=== PATIENT | female | born 1990 | race African-American/Black ===

== ENCOUNTER 2016-08-16 11:08 | Inpatient (IN) | payer OTHER ==
[~2016-08-16] VITALS: Ht 172.7 cm; Wt 80.6 kg
[~2016-08-16 11:08] MED LIST: CETI10TA84 PO; PRED20TA2 PO
--- NOTE | 2016-08-16 11:55 | EMERGENCY ROOM VISIT NOTE ---
History Report prepared by Johanny: Babs Escobar Under the Supervision of: Dr. Franky Brown D.O. First contact with patient: 11:38 Chief Complaint: MENTAL HEALTH EVALUATION Stated Complaint: ANXIETY/DEPRESSION History of Present Illness The patient is a 25 year old female who presents to the Emergency Room with complaints of persistent, worsening depression that began a few years ago. The patient states that she has been experiencing depression and anxiety over the past several years. She denies ever being admitted in the hospital for her depression and denies following with a therapist. The patient states that her friend encouraged her to talk with RJ on Monday. She states that she had another appointment this morning with RJ and was instructed to come to the emergency department for further evaluation. The patient states that she had a panic attack yesterday, and [facility] feels that the patient needs a safe space and possibly being started on medications for her depression. The patient states that she is feeling overwhelmed, and wants to continue on, but cannot perform on the level that she wants to. She states that she has had suicidal ideation, but no attempt. The patient states that she has been stressed out and had feelings of if she was not here things would be better. She denies any recent stressors, but states that school is getting harder, things are building up, and has been feeling stressed out. The patient denies any previous surgeries. She states that she in on control, Zyrtec, and Singular. The patient states that she drinks socially, but denies any tobacco use. Source of History: patient Onset: a few years ago Position: other (global) Quality: other (depression) Timing: worsening Note: Associated Symptoms: suicidal ideation without a plan, panic attacks Review of Systems See HPI for pertinent positives & negatives. A total of 10 systems reviewed and were otherwise negative. Past Medical & Surgical Medical Problems: (1) Depression (2) No significant past medical history Surgical Problems: (1) No significant past surgical history Family History Hypertension Social History Smoking Status: Never Smoker Drug Use: none Marital Status: single Housing Status: lives with roommate Occupation Status: [employer] student Current/Historical Medications Scheduled Control Pills ( Control Pills), 1 TAB PO DAILY Montelukast Sodium (Singulair), 10 MG PO DAILY Scheduled PRN Cetirizine (Zyrtec), 10 MG PO DAILY PRN for ALLERGIC REACTION Allergies Coded Allergies: No Known Allergies (Unverified , 08/16/16) Physical Exam Vital Signs Date Time Temp Pulse Resp B/P Pulse Ox O2 Delivery O2 Flow Rate FiO2 08/16/16 17:12 78 20 147/104 97 Room Air 08/16/16 13:40 75 18 141/96 99 Room Air 08/16/16 11:11 37.0 79 20 141/93 98 Room Air Physical Exam GENERAL: Patient is awake, alert, and in no acute distress. Patient is resting comfortably and showing no signs of anxiety EYES: The conjunctivae are clear. The pupils are round and reactive. EARS, NOSE, MOUTH AND THROAT: The nose is without any evidence of any deformity. Mucous membranes are moist tongue is midline NECK: The neck is nontender and supple. RESPIRATORY: Normal respiratory effort is noted there is no evidence of wheezing rhonchi or rales CARDIOVASCULAR: Regular rate and rhythm noted there no murmurs rubs or gallops normal S1 normal S2 GASTROINTESTINAL: The abdomen is soft. Bowel sounds are present in all quadrants. Abdomen is nontender MUSCULOSKELETAL/EXTREMITIES: There is no evidence of gross deformity full range of motion is noted in the hips and shoulders SKIN: There is no obvious evidence of any rash. There are no petechiae, pallor or cyanosis noted. NEUROLOGIC: Patient is awake alert and oriented x3 strength is symmetric patellar reflexes are 2+ bilaterally PSYCH: Affect was flat, patient was not anxious appearing, currently admitting to passive suicidal ideation with no plan. Medical Decision & Procedures Laboratory Results 08/16/16 10:20 Red Blood Count 4.88, Mean Corpuscular Volume 82.6, Mean Corpuscular Hemoglobin 28.1, Mean Corpuscular Hemoglobin Concent 34.0, Mean Platelet Volume 10.4, Neutrophils (%) (Auto) 44.6, Lymphocytes (%) (Auto) 47.0, Monocytes (%) (Auto) 8.1, Eosinophils (%) (Auto) 0.0, Basophils (%) (Auto) 0.0, Neutrophils # (Auto) 1.66, Lymphocytes # (Auto) 1.75, Monocytes # (Auto) 0.30, Eosinophils # (Auto) 0.00, Basophils # (Auto) 0.00 08/16/16 10:20 Test 08/16/16 10:20 2/14/17 11:24 08/16/16 12:40 White Blood Count 3.72 K/uL (4.8-10.8) Red Blood Count 4.88 M/uL (4.2-5.4) Hemoglobin 13.7 g/dL (12.0-16.0) Hematocrit 40.3 % (37-47) Mean Corpuscular Volume 82.6 fL (80-100) Mean Corpuscular Hemoglobin 28.1 pg (25-34) Mean Corpuscular Hemoglobin Concent 34.0 g/dl (32-36) Platelet Count 248 K/uL (130-400) Mean Platelet Volume 10.4 fL (7.4-10.4) Neutrophils (%) (Auto) 44.6 % Lymphocytes (%) (Auto) 47.0 % Monocytes (%) (Auto) 8.1 % Eosinophils (%) (Auto) 0.0 % Basophils (%) (Auto) 0.0 % Neutrophils # (Auto) 1.66 K/uL (1.4-6.5) Lymphocytes # (Auto) 1.75 K/uL (1.2-3.4) Monocytes # (Auto) 0.30 K/uL (0.11-0.59) Eosinophils # (Auto) 0.00 K/uL (0-0.5) Basophils # (Auto) 0.00 K/uL (0-0.2) RDW Standard Deviation 40.2 fL (36.4-46.3) RDW Coefficient of Variation 13.4 % (11.5-14.5) Immature Granulocyte % (Auto) 0.3 % Immature Granulocyte # (Auto) 0.01 K/uL (0.00-0.02) Anion Gap 8.0 mmol/L (3-11) Est Creatinine Clear Calc Drug Dose 106.1 ml/min Estimated GFR () 101.7 Estimated GFR (Non- 87.8 BUN/Creatinine Ratio 7.7 (10-20) Calcium Level 8.6 mg/dl (8.5-10.1) Total Bilirubin 0.7 mg/dl (0.2-1) Direct Bilirubin 0.1 mg/dl (0-0.2) Aspartate Amino Transf (AST/SGOT) 21 U/L (15-37) Alanine Aminotransferase (ALT/SGPT) 24 U/L (12-78) Alkaline Phosphatase 60 U/L (45-117) Total Protein 8.0 gm/dl (6.4-8.2) Albumin 4.0 gm/dl (3.4-5.0) Globulin 4.0 gm/dl (2.5-4.0) Albumin/Globulin Ratio 1.0 (0.9-2) Thyroid Stimulating Hormone (TSH) 1.380 uIu/ml (0.300-4.500) Ethyl Alcohol mg/dL < 3.0 mg/dl (0-3) Urine Color YELLOW Urine Appearance CLEAR (CLEAR) Urine pH 7.0 (4.5-7.5) Urine Specific [place] 1.016 (1.000-1.030) Urine Protein NEG (NEG) Urine Glucose (UA) NEG (NEG) Urine Ketones NEG (NEG) Urine Occult Blood NEG (NEG) Urine Nitrite NEG (NEG) Urine Bilirubin NEG (NEG) Urine Urobilinogen NEG (NEG) Urine Leukocyte Esterase TRACE (NEG) Urine WBC (Auto) 1-5 /hpf (0-5) Urine RBC (Auto) 0-4 /hpf (0-4) Urine Hyaline Casts (Auto) 1-5 /lpf (0-5) Urine Epithelial Cells (Auto) >30 /lpf (0-5) Urine Bacteria (Auto) 1+ (NEG) Urine Opiates Screen NEG (NEG) Urine Methadone, Qualitative NEG (NEG) Urine Barbiturates NEG (NEG) Urine Phencyclidine (PCP) Level NEG (NEG) Ur Amphetamine/Methamphetamine NEG (NEG) MDMA (Ecstasy) Screen NEG (NEG) Urine Benzodiazepines Screen NEG (NEG) Urine Cocaine Metabolite NEG (NEG) Urine Marijuana (THC) NEG (NEG) Human Chorionic Gonadotropin, Qual NEG (NEG) Laboratory results per my review. ED Course 1140: The patient was evaluated in room A8. A complete history and physical examination were performed. 1639: The patient has been accepted at [facility] for further evaluation and treatment. Medical Decision Differential diagnosis: Etiologies such as mood disorder, infection, hypoglycemia, electrolyte abnormalities, cardiac sources, intracerebral event, toxicologic, neurologic, as well as others were entertained. Nursing notes reviewed. The patient is a 25-year-old female who presented to the emergency department for an evaluation of mental health problem's. The patient has significant depression and anxiety symptoms. She is currently under significant stress because of her classes. She was medically cleared in the emergency department and evaluated by the emergency department mental health delegate. She was sent to the emergency apartment by her primary therapist. She was felt to be a good candidate for inpatient management. She was evaluated by the delegate from [address] [place] [address] and was accepted for inpatient management. Impression Primary Impression: Anxiety Additional Impression: Depression Scribe Attestation The scribe's documentation has been prepared under my direction and personally reviewed by me in its entirety. I confirm that the note above accurately reflects all work, treatment, procedures, and medical decision making performed by me. Departure Information Dispostion Mental Health Acute Care Referrals No Doctor, Assigned (PCP) Problem Qualifiers
[2016-08-16 12:10] LABS: URINE APPEARANCE CLEAR (CLEAR); URINE BILIRUBIN NEG (NEG); URINE COLOR YELLOW; URINE EPITHELIAL CELL AUTO >30 /lpf (0-5); URINE NITRITE NEG (NEG); URINE SPECIFIC GRAVITY 1.016 (1.000-1.030); UROBILINOGEN NEG (NEG)
[2016-08-16 12:11] LABS: MANUAL MICROSCOPIC REQUIRED? NO; REVIEW REQ? NO
[2016-08-16 12:15] LABS: COMPLETE YES; HEMATOCRIT 40.3 % (37-47); IG% 0.3 %; LYMPH ABS # 1.75 K/uL (1.2-3.4); MEAN CELL VOLUME 82.6 fL (80-100); MEAN CORPUSCULAR HEMOGLOBIN 28.1 pg (25-34); MEAN PLATELET VOLUME 10.4 fL (7.4-10.4); MONO % 8.1 %; NEUT % 44.6 %; PLATELET COUNT 248 K/uL (130-400); RED BLOOD COUNT 4.88 M/uL (4.2-5.4); WHITE BLOOD COUNT 3.72 K/uL (4.8-10.8)
[2016-08-16] MEDS ORDERED: BCPILLS PO (12:22)
[2016-08-16] MEDS ORDERED: MONT1TAB3 PO (12:22)
[2016-08-16 12:38] LABS: BUN/CREATININE RATIO 7.7 (10-20); CALCIUM 8.6 mg/dl (8.5-10.1); CREATININE 0.92 mg/dl (0.60-1.20); POTASSIUM 3.9 mmol/L (3.5-5.1)
[2016-08-16 12:42] LABS: BENZODIAZEPINE, URINE NEG (NEG); COCAINE,URINE NEG (NEG); PHENCYCLIDINE, URINE NEG (NEG)
[2016-08-16 12:49] LABS: THYROID STIMULATING HORMONE 1.38 uIu/ml (0.300-4.500)
[2016-08-16 12:59] LABS: PREG INTERNAL NEGATIVE QC NEG CLEAR BACKGROUND; PREG INTERNAL POSITIVE QC POS CONTROL LINE
[2016-08-16 17:12] VITALS: O2SAT 97
[2016-08-16 18:41] VITALS: BP 145/102; PULSE 70; TEMP 36.8; Ht 172.7 cm; Wt 80.6 kg
[2016-08-16] MEDS ORDERED: SODIUM CHLORIDE 0.65% NA SOLN 45 ML (OCEAN) PRN (19:30)
[2016-08-16] MEDS ORDERED: ACETAMINOPHEN 325 MG TAB PO PRN (19:30)
[2016-08-16] MEDS ORDERED: ALUMINUM/MAGNESIUM SUSP 30 ML UDC PO PRN (19:30)
[2016-08-16] MEDS ORDERED: MAGNESIUM HYDROXIDE SUSP 30 ML UDC PO PRN (19:30)
[2016-08-16] MEDS ORDERED: hydrOXYzine HCL 25 MG TAB PO PRN ×2 (19:30)
[2016-08-16] MEDS ORDERED: BISMUTH SUBSALICYLATE PER ML OMNICELL CHARGE PO PRN (19:30)
[2016-08-16] MEDS: MONTELUKAST SOD 10 MG TAB PO SCH (21:48)
[2016-08-17 06:48] VITALS: BP_SYST 133; BP_SYST 136; BP_DIAS 86; BP_DIAS 87; PULSE 67; PULSE 80; TEMP 36.7
[2016-08-17] MEDS: NORETHINDRONE 0.35 MG PO SCH (08:31)
[2016-08-17] MEDS: MONTELUKAST SOD 10 MG TAB PO SCH (08:32)
[2016-08-17] MEDS: CETIRIZINE HCL 10 MG TAB PO PRN (08:47)
[2016-08-17] MEDS ORDERED: MONTELUKAST SOD 10 MG TAB PO SCH (09:00)
[2016-08-17] MEDS ORDERED: BIRTH CONTROL PILLS PO SCH (09:00)
[2016-08-17] MEDS ORDERED: NORETHINDRONE 0.35 MG PO SCH (09:00)
[2016-08-17] MEDS ORDERED: SERTRALINE HCL 50 MG TAB PO ONE (11:01)
[2016-08-17] MEDS ORDERED: IBUPROFEN 600 MG TAB PO PRN (11:15)
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
[2016-08-18 06:49] VITALS: BP_SYST 131; BP_SYST 132; BP_DIAS 85; BP_DIAS 87; PULSE 75; PULSE 78; TEMP 36.6
[2016-08-18] MEDS: MONTELUKAST SOD 10 MG TAB PO SCH (08:49)
[2016-08-18] MEDS: SERTRALINE HCL 50 MG TAB PO SCH (08:49)
[2016-08-18] MEDS: NORETHINDRONE 0.35 MG PO SCH (08:49)
[2016-08-18] MEDS: CETIRIZINE HCL 10 MG TAB PO PRN (08:51)
--- NOTE | 2016-08-18 11:17 | Psychiatric Progress Notes ---
Progress Note Date of Service Aug 18, 2016. 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 Chief Complaint "Good. ". Subjective Patient was seen & assessed interval progress reviewed with Treatment Team. The patient is adjusting well to the support and structure of the milieu but is missing her home and daily routines. She reports some minor stomach discomfort yesterday, but notes that it might be related to just having started her period. She has had good support from her friends and boyfriend who have visited, and a meeting is scheduled with this afternoon. She reports some anxiety about missing school and about the work that she will have to make up, and cannot have work brought in because its all on the computer. She rates her mood today 8/10 and is denying SI/HI. She is anxious to know how long she will be in the hospital, but is not asking to be discharged, knowing that she needs to get treatment. Review of Systems Constitutional: No chills, No fatigue, No fever, No problem reported, No sweats , No weakness, No weight loss ENT: No dental problems, No hearing loss, No nasal symptoms, No problem reported, No sore throat, No tinnitus, No trouble swallowing, No unusual epistaxis Respiratory: No cough, No dyspnea at rest, No dyspnea on exertion, No hemoptysis, No problem reported, No shortness of breath, No sputum, No wheezing Cardiovascular: No PND, No chest pain, No claudication, No edema, No orthopnea , No palpitations, No problem reported Abdomen: + nausea (mild) Musculoskeletal: No calf pain, No joint pain, No muscle pain, No problem reported, No swelling Neurologic: No balance problems, No memory loss, No numbness/tingling, No paralysis, No problem reported, No vertigo, No weakness Psychiatric: + depression symptoms Integumentary: No bleeding, No color change, No itch, No new/changing skin lesions, No problem reported, No rash Sleep Information Total Hours of Sleep: 7.00 Meal Information Percent of Breakfast Consumed: 75 Percent of Lunch Consumed: 100 Percent of Dinner Consumed: 100 Mental Status Exam During interview pt is: alert and oriented, cooperative Appearance: appropriately dressed Eye contact is: good Motor behavior is: steady gait & station, no abnormal motor movements Affect: mood congruent, blunted Mood is: depressed Thought process: goal directed Thought content: reality based without delusions Suicidal thought are: denied Homicidal thoughts are: denied Hallucinations: denies auditory, denies visual Cognition: memory grossly intact, attention grossly intact Intelligence estimated to be: average Insight: limited Judgement: limited Impression ADjusting well to the unit resulting in relief from acute SI. She is tolerating the initiation of Zoloft which increased to 50 mg. today. Family meeting is scheduled, and will need to identify an OP psychiatric prescriber Continued Inpatient Care The patient requires inpatient care due to the severity of her condition that included suicidal thoughts and a plan as recently as 08/17, and the risk for self harm if discharged. Plan (1) Major depressive disorder, recurrent severe without psychotic features 08/18 - Continue Zoloft 50 mg. daily, titrating as tolerated - Encourage participation in group and individual counseling - Q 15 min checks for safety - Family meeting scheduled with this afternoon - Will need a psychiatric prescriber - Coordinate with CAPS counselor - Assist the patient to learn and utilize healthy coping strategies (2) YESSY (generalized anxiety disorder) 08/18 - Expose the patient to topics such as mindfulness, relaxation exercises and deep breathing - Prn vistaril for sleep/anxiety - Zoloft as above Discharge / Aftercare Planning Primary Care Physician: Name: [facility] Psychiatrist: Name: soraya Therapist: Name: soraya Stitch Marker: Name: soraya Visit Code E&M Code: 12821 Inventory Assets Strengths: Intelligence, willingness to engage in treatment Risk Factors Assessment : No /single/: Yes Higher / Fall in social status: No Access to guns: No Health problems: No Mental Health Diagnoses: No Substance use disorders: No Previous attempt: No Previous psychiatric stay: No Smoker: No Protective Factors Assessment Restoration beliefs: Yes : No Responsible for young children: No Employed: No Stable relationships: Yes Supportive family: Yes Data Vital Signs Last 24 Hrs: Date Time Temp Pulse Resp B/P Pulse Ox O2 Delivery O2 Flow Rate FiO2 08/18/16 06:49 36.6 75 16 131/87 78 132/85 Meds Administered Last 24 Hrs: Meds Administered (Past 24Hrs) Medications (Trade) Dose Ordered Sig/Ade Route Start Time Stop Time Status Last Admin Dose Admin Cetirizine HCl (zyrTEC TAB) 10 mg DAILY PRN PO 08/16/16 19:30 09/15/16 19:29 08/18/16 08:51 10 MG Montelukast Sodium (Singulair Tab) 10 mg HS PO 08/16/16 22:00 08/17/16 11:03 DC 08/17/16 08:32 10 MG Non-Formulary Medication (Non-Formulary Patient'S Own Med) 1 ea DAILY PO 08/17/16 09:00 09/16/16 08:59 08/18/16 08:49 1 EA Montelukast Sodium (Singulair Tab) 10 mg QAM PO 08/18/16 09:00 09/17/16 08:59 08/18/16 08:49 10 MG Sertraline HCl (Zoloft Tab) 50 mg QAM PO 08/18/16 09:00 09/17/16 08:59 08/18/16 08:49 50 MG Sertraline HCl (Zoloft Tab) 25 mg 1101 ONCE PO 08/17/16 11:01 08/17/16 11:25 DC 08/17/16 12:11 25 MG Lab Results Last 24 Hrs: 08/16/16 10:20 Red Blood Count 4.88, Mean Corpuscular Volume 82.6, Mean Corpuscular Hemoglobin 28.1, Mean Corpuscular Hemoglobin Concent 34.0, Mean Platelet Volume 10.4, Neutrophils (%) (Auto) 44.6, Lymphocytes (%) (Auto) 47.0, Monocytes (%) (Auto) 8.1, Eosinophils (%) (Auto) 0.0, Basophils (%) (Auto) 0.0, Neutrophils # (Auto) 1.66, Lymphocytes # (Auto) 1.75, Monocytes # (Auto) 0.30, Eosinophils # (Auto) 0.00, Basophils # (Auto) 0.00 08/16/16 10:20 Test 08/16/16 10:20 08/16/16 11:24 08/16/16 12:40 White Blood Count 3.72 K/uL (4.8-10.8) Red Blood Count 4.88 M/uL (4.2-5.4) Hemoglobin 13.7 g/dL (12.0-16.0) Hematocrit 40.3 % (37-47) Mean Corpuscular Volume 82.6 fL (80-100) Mean Corpuscular Hemoglobin 28.1 pg (25-34) Mean Corpuscular Hemoglobin Concent 34.0 g/dl (32-36) Platelet Count 248 K/uL (130-400) Mean Platelet Volume 10.4 fL (7.4-10.4) Neutrophils (%) (Auto) 44.6 % Lymphocytes (%) (Auto) 47.0 % Monocytes (%) (Auto) 8.1 % Eosinophils (%) (Auto) 0.0 % Basophils (%) (Auto) 0.0 % Neutrophils # (Auto) 1.66 K/uL (1.4-6.5) Lymphocytes # (Auto) 1.75 K/uL (1.2-3.4) Monocytes # (Auto) 0.30 K/uL (0.11-0.59) Eosinophils # (Auto) 0.00 K/uL (0-0.5) Basophils # (Auto) 0.00 K/uL (0-0.2) RDW Standard Deviation 40.2 fL (36.4-46.3) RDW Coefficient of Variation 13.4 % (11.5-14.5) Immature Granulocyte % (Auto) 0.3 % Immature Granulocyte # (Auto) 0.01 K/uL (0.00-0.02) Anion Gap 8.0 mmol/L (3-11) Est Creatinine Clear Calc Drug Dose 106.1 ml/min Estimated GFR () 101.7 Estimated GFR (Non- 87.8 BUN/Creatinine Ratio 7.7 (10-20) Calcium Level 8.6 mg/dl (8.5-10.1) Total Bilirubin 0.7 mg/dl (0.2-1) Direct Bilirubin 0.1 mg/dl (0-0.2) Aspartate Amino Transf (AST/SGOT) 21 U/L (15-37) Alanine Aminotransferase (ALT/SGPT) 24 U/L (12-78) Alkaline Phosphatase 60 U/L (45-117) Total Protein 8.0 gm/dl (6.4-8.2) Albumin 4.0 gm/dl (3.4-5.0) Globulin 4.0 gm/dl (2.5-4.0) Albumin/Globulin Ratio 1.0 (0.9-2) Thyroid Stimulating Hormone (TSH) 1.380 uIu/ml (0.300-4.500) Ethyl Alcohol mg/dL < 3.0 mg/dl (0-3) Urine Color YELLOW Urine Appearance CLEAR (CLEAR) Urine pH 7.0 (4.5-7.5) Urine Specific [place] 1.016 (1.000-1.030) Urine Protein NEG (NEG) Urine Glucose (UA) NEG (NEG) Urine Ketones NEG (NEG) Urine Occult Blood NEG (NEG) Urine Nitrite NEG (NEG) Urine Bilirubin NEG (NEG) Urine Urobilinogen NEG (NEG) Urine Leukocyte Esterase TRACE (NEG) Urine WBC (Auto) 1-5 /hpf (0-5) Urine RBC (Auto) 0-4 /hpf (0-4) Urine Hyaline Casts (Auto) 1-5 /lpf (0-5) Urine Epithelial Cells (Auto) >30 /lpf (0-5) Urine Bacteria (Auto) 1+ (NEG) Urine Opiates Screen NEG (NEG) Urine Methadone, Qualitative NEG (NEG) Urine Barbiturates NEG (NEG) Urine Phencyclidine (PCP) Level NEG (NEG) Ur Amphetamine/Methamphetamine NEG (NEG) MDMA (Ecstasy) Screen NEG (NEG) Urine Benzodiazepines Screen NEG (NEG) Urine Cocaine Metabolite NEG (NEG) Urine Marijuana (THC) NEG (NEG) Human Chorionic Gonadotropin, Qual NEG (NEG)
[2016-08-19 06:48] VITALS: BP_SYST 130; BP_SYST 132; BP_DIAS 81; BP_DIAS 90; PULSE 75; PULSE 84; TEMP 36.7
[2016-08-19] MEDS: NORETHINDRONE 0.35 MG PO SCH (08:57)
[2016-08-19] MEDS: SERTRALINE HCL 50 MG TAB PO SCH (08:57)
[2016-08-19] MEDS: MONTELUKAST SOD 10 MG TAB PO SCH (08:57)
[2016-08-19] MEDS: CETIRIZINE HCL 10 MG TAB PO PRN (08:58)
--- NOTE | 2016-08-19 13:39 | Psychiatric Progress Notes ---
Progress Note Date of Service Aug 19, 2016. 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 Multiple stressors including being in a master's program, difficult relationship with mother and step father, and snf stress over not knowing who her father is. Chief Complaint "OK". Subjective Patient was seen & assessed interval progress reviewed with Treatment Team. The patient says that she misses her own routine " and the things that help me relax". She is anxious to go home but will stay as long as recommended. she has had no further nausea on the Zoloft, and denies other side effects. Mood is improving, rated 6/10 today and denies SI. Her anxiety is "fine", but nursing reports that she was somewhat irritable last evening. She had a meeting with her boyfriend yesterday that she felt went well, and feels very supported by him. Although she reports improved mood, her affect is generally observed to be flat when in the milieu Review of Systems Constitutional: No chills, No fatigue, No fever, No problem reported, No sweats , No weakness, No weight loss ENT: No dental problems, No hearing loss, No nasal symptoms, No problem reported, No sore throat, No tinnitus, No trouble swallowing, No unusual epistaxis Respiratory: No cough, No dyspnea at rest, No dyspnea on exertion, No hemoptysis, No problem reported, No shortness of breath, No sputum, No wheezing Cardiovascular: No PND, No chest pain, No claudication, No edema, No orthopnea , No palpitations, No problem reported Abdomen: No GI bleeding, No constipation, No diarrhea, No nausea, No pain, No problem reported, No vomiting Neurologic: No balance problems, No memory loss, No numbness/tingling, No paralysis, No problem reported, No vertigo, No weakness Psychiatric: + depression symptoms (improving) Integumentary: No bleeding, No color change, No itch, No new/changing skin lesions, No problem reported, No rash Sleep Information Total Hours of Sleep: 6.50 Meal Information Percent of Breakfast Consumed: 100 Percent of Lunch Consumed: 100 Percent of Dinner Consumed: 100 Mental Status Exam During interview pt is: alert and oriented, cooperative Appearance: appropriately dressed Eye contact is: good Motor behavior is: steady gait & station, no abnormal motor movements Affect: mood congruent, blunted Mood is: depressed Thought process: goal directed Thought content: reality based without delusions Suicidal thought are: denied Homicidal thoughts are: denied Hallucinations: denies auditory, denies visual Cognition: memory grossly intact, attention grossly intact Intelligence estimated to be: average Insight: limited Judgement: limited Impression No further nausea and so will increase zoloft to 100 mg. starting tomorrow. Although she report improved mood, her affect is not congruent and there is concern that she is minimizing her symptoms to facilitate early discharge. Would like to see her stay this weekend for further med titration, but if remains free of SI could go as early as Sun or Mond. Continued Inpatient Care The patient requires inpatient care due to the severity of her condition that included suicidal thoughts and a plan as recently as 08/17, and the risk for self harm if discharged. Plan (1) Major depressive disorder, recurrent severe without psychotic features 08/18 - Continue Zoloft 50 mg. daily, titrating as tolerated - Encourage participation in group and individual counseling - Q 15 min checks for safety - Family meeting scheduled with this afternoon - Will need a psychiatric prescriber - Coordinate with CAPS counselor - Assist the patient to learn and utilize healthy coping strategies 08/19 - Increase Zoloft to 100 mg. daily (2) YESSY (generalized anxiety disorder) 08/18 - Expose the patient to topics such as mindfulness, relaxation exercises and deep breathing - Prn vistaril for sleep/anxiety - Zoloft as above 08/19 - Increase Zoloft to 100 mg. Discharge / Aftercare Planning Primary Care Physician: Name: [facility] Psychiatrist: Name: soraya Therapist: Name: soraya Rotary Drill Operator: Name: soraya Visit Code E&M Code: 05409 Inventory Assets Strengths: Intelligence, willingness to engage in treatment Risk Factors Assessment : No /single/: Yes Higher / Fall in social status: No Access to guns: No Health problems: No Mental Health Diagnoses: No Substance use disorders: No Previous attempt: No Previous psychiatric stay: No Smoker: No Protective Factors Assessment Church beliefs: Yes : No Responsible for young children: No Employed: No Stable relationships: Yes Supportive family: Yes Data Vital Signs Last 24 Hrs: Date Time Temp Pulse Resp B/P Pulse Ox O2 Delivery O2 Flow Rate FiO2 08/19/16 06:48 36.7 75 16 130/81 84 132/90 Meds Administered Last 24 Hrs: Meds Administered (Past 24Hrs) Medications (Trade) Dose Ordered Sig/Ade Route Start Time Stop Time Status Last Admin Dose Admin Montelukast Sodium (Singulair Tab) 10 mg QAM PO 08/18/16 09:00 09/17/16 08:59 08/19/16 08:57 10 MG Sertraline HCl (Zoloft Tab) 50 mg QAM PO 08/18/16 09:00 09/17/16 08:59 08/19/16 08:57 50 MG Lab Results Last 24 Hrs: 08/16/16 10:20 Red Blood Count 4.88, Mean Corpuscular Volume 82.6, Mean Corpuscular Hemoglobin 28.1, Mean Corpuscular Hemoglobin Concent 34.0, Mean Platelet Volume 10.4, Neutrophils (%) (Auto) 44.6, Lymphocytes (%) (Auto) 47.0, Monocytes (%) (Auto) 8.1, Eosinophils (%) (Auto) 0.0, Basophils (%) (Auto) 0.0, Neutrophils # (Auto) 1.66, Lymphocytes # (Auto) 1.75, Monocytes # (Auto) 0.30, Eosinophils # (Auto) 0.00, Basophils # (Auto) 0.00 08/16/16 10:20 Test 08/16/16 10:20 08/16/16 11:24 08/16/16 12:40 White Blood Count 3.72 K/uL (4.8-10.8) Red Blood Count 4.88 M/uL (4.2-5.4) Hemoglobin 13.7 g/dL (12.0-16.0) Hematocrit 40.3 % (37-47) Mean Corpuscular Volume 82.6 fL (80-100) Mean Corpuscular Hemoglobin 28.1 pg (25-34) Mean Corpuscular Hemoglobin Concent 34.0 g/dl (32-36) Platelet Count 248 K/uL (130-400) Mean Platelet Volume 10.4 fL (7.4-10.4) Neutrophils (%) (Auto) 44.6 % Lymphocytes (%) (Auto) 47.0 % Monocytes (%) (Auto) 8.1 % Eosinophils (%) (Auto) 0.0 % Basophils (%) (Auto) 0.0 % Neutrophils # (Auto) 1.66 K/uL (1.4-6.5) Lymphocytes # (Auto) 1.75 K/uL (1.2-3.4) Monocytes # (Auto) 0.30 K/uL (0.11-0.59) Eosinophils # (Auto) 0.00 K/uL (0-0.5) Basophils # (Auto) 0.00 K/uL (0-0.2) RDW Standard Deviation 40.2 fL (36.4-46.3) RDW Coefficient of Variation 13.4 % (11.5-14.5) Immature Granulocyte % (Auto) 0.3 % Immature Granulocyte # (Auto) 0.01 K/uL (0.00-0.02) Anion Gap 8.0 mmol/L (3-11) Est Creatinine Clear Calc Drug Dose 106.1 ml/min Estimated GFR () 101.7 Estimated GFR (Non- 87.8 BUN/Creatinine Ratio 7.7 (10-20) Calcium Level 8.6 mg/dl (8.5-10.1) Total Bilirubin 0.7 mg/dl (0.2-1) Direct Bilirubin 0.1 mg/dl (0-0.2) Aspartate Amino Transf (AST/SGOT) 21 U/L (15-37) Alanine Aminotransferase (ALT/SGPT) 24 U/L (12-78) Alkaline Phosphatase 60 U/L (45-117) Total Protein 8.0 gm/dl (6.4-8.2) Albumin 4.0 gm/dl (3.4-5.0) Globulin 4.0 gm/dl (2.5-4.0) Albumin/Globulin Ratio 1.0 (0.9-2) Thyroid Stimulating Hormone (TSH) 1.380 uIu/ml (0.300-4.500) Ethyl Alcohol mg/dL < 3.0 mg/dl (0-3) Urine Color YELLOW Urine Appearance CLEAR (CLEAR) Urine pH 7.0 (4.5-7.5) Urine Specific [place] 1.016 (1.000-1.030) Urine Protein NEG (NEG) Urine Glucose (UA) NEG (NEG) Urine Ketones NEG (NEG) Urine Occult Blood NEG (NEG) Urine Nitrite NEG (NEG) Urine Bilirubin NEG (NEG) Urine Urobilinogen NEG (NEG) Urine Leukocyte Esterase TRACE (NEG) Urine WBC (Auto) 1-5 /hpf (0-5) Urine RBC (Auto) 0-4 /hpf (0-4) Urine Hyaline Casts (Auto) 1-5 /lpf (0-5) Urine Epithelial Cells (Auto) >30 /lpf (0-5) Urine Bacteria (Auto) 1+ (NEG) Urine Opiates Screen NEG (NEG) Urine Methadone, Qualitative NEG (NEG) Urine Barbiturates NEG (NEG) Urine Phencyclidine (PCP) Level NEG (NEG) Ur Amphetamine/Methamphetamine NEG (NEG) MDMA (Ecstasy) Screen NEG (NEG) Urine Benzodiazepines Screen NEG (NEG) Urine Cocaine Metabolite NEG (NEG) Urine Marijuana (THC) NEG (NEG) Human Chorionic Gonadotropin, Qual NEG (NEG)
--- NOTE | 2016-08-19 15:05 | Psych Management Progress Note ---
Psychiatry Miscellaneous Date of Service: Aug 19, 2016. Patient seen, MS assessed. Rates mood as improving. Cooperative with care and treatment plan as outlined by [employer]BER MILL WORKER. Voiced good understanding of plan to titrate Zoloft. Encouraged participation in therapeutic activities.
[2016-08-20 07:07] VITALS: BP_SYST 120; BP_SYST 131; BP_DIAS 80; BP_DIAS 83; PULSE 72; PULSE 88; TEMP 36.5
[2016-08-20] MEDS: CETIRIZINE HCL 10 MG TAB PO PRN (09:24)
[2016-08-20] MEDS: NORETHINDRONE 0.35 MG PO SCH (09:24)
[2016-08-20] MEDS: MONTELUKAST SOD 10 MG TAB PO SCH (09:24)
[2016-08-20] MEDS: SERTRALINE HCL 100 MG TAB PO SCH (09:24)
--- NOTE | 2016-08-20 10:13 | Psychiatric Progress Notes ---
Progress Note Date of Service Aug 20, 2016. 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 Chief Complaint "I felt a little irritable yesterday but then I had some visitors and that went well and I feel okay today". Subjective Patient was seen & assessed interval progress reviewed with Treatment Team She reports her mood is a 8/10 and denies safety concerns, feeling that she is more hopeful and feels supported by her friends and the corporate administrator for [employer] affairs at the [employer]. [place] she feels less anxious and that is helping her feel less hopeless as well. She rates anxiety as a 3/10 because she has anticipation to return to her schoolwork with an assignment due on Monday. She denies physical concerns. She is not having hives here. She took the 100mg sertraline today first dose at that mg level and denies SE to date. She denies physical concerns. Review of Systems she has intact A, sleep and no hives, denies SE from sertraline to include GI upset, or CLAY. denies physical concerns on ROS Sleep Information Total Hours of Sleep: 7.00 Meal Information Percent of Breakfast Consumed: 100 Percent of Lunch Consumed: 100 Percent of Dinner Consumed: 100 Mental Status Exam During interview pt is: alert and oriented, cooperative Appearance: appropriately dressed Eye contact is: good Motor behavior is: steady gait & station, no abnormal motor movements Affect: mood congruent, blunted Mood is: other ("okay" appears constricted) Thought process: goal directed Thought content: reality based without delusions Suicidal thought are: denied Homicidal thoughts are: denied Hallucinations: denies auditory, denies visual Cognition: memory grossly intact, attention grossly intact Intelligence estimated to be: average Insight: limited Judgement: limited Impression No further nausea and so will increase zoloft to 100 mg first dose 08/20/16 Although she report improved mood, her affect 08/19 was not congruent and there is concern that she is minimizing her symptoms to facilitate early discharge. Would like to see her stay this weekend for further med titration, but if remains free of SI could go as early as Monday or Monday. Continued Inpatient Care The patient requires inpatient care due to the severity of her condition that included suicidal thoughts and a plan as recently as 08/17, and the risk for self harm if discharged. Plan (1) Major depressive disorder, recurrent severe without psychotic features 08/18 - Continue Zoloft 50 mg. daily, titrating as tolerated - Encourage participation in group and individual counseling - Q 15 min checks for safety - Family meeting scheduled with this afternoon - Will need a psychiatric prescriber - Coordinate with CAPS counselor - Assist the patient to learn and utilize healthy coping strategies 08/19 and 08/20 - Increase Zoloft to 100 mg. daily first dose at that level 08/20/16 (2) YESSY (generalized anxiety disorder) 08/18 - Expose the patient to topics such as mindfulness, relaxation exercises and deep breathing - Prn vistaril for sleep/anxiety - Zoloft as above 08/19 and 08/20 - Increase Zoloft to 100 mg. starting on 08/20/16 Discharge / Aftercare Planning Primary Care Physician: Name: [facility] Phone Number: [phone] Appointment Notes: as needed Psychiatrist: Name: [facility] Phone Number: [phone] Date of Appointment: Sep 14, 2016 Time of Appointment: 945 am Appointment Notes: [address] [facility] [place] [id number]- take ID card [facility] Therapist: Name: Cullen barba [facility] Phone Number: [phone] Date of Appointment: Aug 24, 2016 Time of Appointment: 12:45 Appointment Notes: take insurance card- [address] [facility] [place] [address] [place] After Lasting: Name: soraya Visit Code E&M Code: 95865 Inventory Assets Strengths: Intelligence, willingness to engage in treatment Risk Factors Assessment : No /single/: Yes Higher / Fall in social status: No Access to guns: No Health problems: No Mental Health Diagnoses: No Substance use disorders: No Previous attempt: No Previous psychiatric stay: No Smoker: No Protective Factors Assessment Rastafari beliefs: Yes : No Responsible for young children: No Employed: No Stable relationships: Yes Supportive family: Yes Data Vital Signs Last 24 Hrs: Date Time Temp Pulse Resp B/P Pulse Ox O2 Delivery O2 Flow Rate FiO2 08/20/16 07:07 36.5 72 16 120/80 88 131/83 Meds Administered Last 24 Hrs: Meds Administered (Past 24Hrs) Medications (Trade) Dose Ordered Sig/Ade Route Start Time Stop Time Status Last Admin Dose Admin Sertraline HCl (Zoloft Tab) 100 mg QAM PO 08/20/16 09:00 09/19/16 08:59 08/20/16 09:24 100 MG
[2016-08-21 07:10] VITALS: BP_SYST 139; BP_SYST 144; BP_DIAS 83; BP_DIAS 89; PULSE 68; PULSE 81; TEMP 36.6
[2016-08-21] MEDS: NORETHINDRONE 0.35 MG PO SCH (08:43)
[2016-08-21] MEDS: MONTELUKAST SOD 10 MG TAB PO SCH (08:44)
[2016-08-21] MEDS: SERTRALINE HCL 100 MG TAB PO SCH (08:44)
[2016-08-21] MEDS: CETIRIZINE HCL 10 MG TAB PO PRN (08:44)
[2016-08-21] MEDS ORDERED: SERT1TAB92 PO (11:27)
[2016-08-21] MEDS ORDERED: ATR25 PO (11:27)
--- NOTE | 2016-08-21 11:41 | Discharge Instructions ---
Discharge Information Report Includes Report will include the: Discharge Instructions & Summary Admission Admission Date / Time: Aug 16, 2016 at 14:54 Reason for Admission: Depression Discharge Discharge Diagnosis / Problem: MDD recurrent in unspecified remission Condition at Discharge: Good Discharge Goals Goal(s): Improve function, Improve disease control, Learn about illness, Therapeutic intervention Activity Recommendations Activity Limitations: resume your previous activity Lifting Limitations: none Exercise/Sports Limitations: none May Resume Sexual Activity: when tolerated Shower/Bathe: no limitations Driving or Machine Use: no limitations . Instructions / Follow-Up Instructions / Follow-Up . SPECIAL CARE INSTRUCTIONS: 1. Follow through with your scheduled aftercare appointments. If unable to keep an appointment, please call to reschedule. 2. Take your medication only as prescribed. Medication should not be changed or stopped without the approval of your doctor. In the event of worsening symptoms or concerns about side effects, contact your doctor immediately. 3. Utilize new healthy coping skills, anger management skills, and stress management skills learned during your hospitalization. Journal feelings and process them with a support person. Identify stressors or situations that may result in relapse, deterioration or inappropriate behaviors and develop a plan to deal with those issues. 4. If your coping skills are ineffective and you are in crisis, contact your outpatient providers for direction. If unable to reach your providers, please call the CAN HELP LINE AT or go to the closest Emergency Room. 5. Avoid alcohol and un-prescribed drugs. 6. You have been provided with the Mental Health Advance Directives Pamphlet for your review. AFTERCARE APPOINTMENTS: * Please call your insurance company prior to your scheduled appointment to confirm your aftercare providers are covered. Take your insurance information to your appointments. . Discharge / Aftercare Planning Primary Care Physician: Name: [facility] Phone Number: [phone] Appointment Notes: as needed Psychiatrist: Name: Cecy Chavez at [facility] Phone Number: [phone] Date of Appointment: Sep 14, 2016 Time of Appointment: 945 am Appointment Notes: [address] [place] [address]- take ID card ( [facility] Therapist: Name Of Therapist: Cullen barba [facility] Phone Number: [phone] Date of Appointment: Aug 24, 2016 Time of Appointment: 12:45 Appointment Comments: take insurance card- [address], [place] [address] Litigation Attorney Associate: Name: soraya . Follow-Up Care Plan for Follow-Up Care: See discharge instuctions for appt with therapist at [facility], and [facility] for prescribing services, continue to take medications as prescribed. Current Hospital Diet Patient's current hospital diet: Regular Diet Discharge Diet Recommended Diet: Regular Diet Procedures Procedures Performed: No Pending Studies Pending Studies at Discharge: No Medical Emergencies . Who to Call and When: Medical Emergencies: For questions or emergencies related to your hospital stay, please contact the Inpatient Behavioral Health Unit at [phone]. A glue sprayer is on-call 23/01 for the Behavioral Health Unit for emergencies At any time you feel your situation is an emergency, you may also call 911 immediately. . Non-Emergent Contact Non-Emergency issues call your: Primary Care Provider (until you are established wtih your therapist and prescribing behavioral health provider) Call Non-Emergent contact if: you have any medication questions Past History Medical & Surgical History: (1) YESSY (generalized anxiety disorder) (2) Major depressive disorder, recurrent severe without psychotic features Advance Directives Existing Advance Directive: No Do You Have an Existing Mental: No Existing Living Will: No Existing Power of Professional Golf Tournament Player: No Advance Directives Info Given: To Pt/S.O. Discharge Summary Admission HPI Per the Admitting provider: IMPRESSION: A 25-year-old woman admitted to the hospital with severe depression and suicidality (chronic passive SI, wtih escalating thoughts of jumping from a building or into traffic). She addition has lifelong YESSY. She has never been in psychiatric treatment nor been on medications and so, we will start Zoloft 25 mg today, increasing to 50 tomorrow. Risks, benefits, and alternatives have been reviewed including the FDA warning for worsening of depression and suicidality. We will use p.r.n. Vistaril for sleep and anxiety. We will offer family meetings with her mother and stepfather as well as her boyfriend. We will also establish appropriate outpatient care. At this time, however, the patient requires inpatient mental health treatment due to the severity of her condition and the risk for self harm if discharged. Admission Diagnosis: MDD recurrent Severe without psychotic features YESSY r/o HTN Admission Exam Per the Admitting provider: MENTAL STATUS EXAMINATION AT ADMISSION: A 25-year-old -[place] woman with long dark straight hair, who is appropriately dressed and groomed. Gait and station are within normal limits. She makes good eye contact. Motor behavior is unremarkable and there are no abnormal muscle movements. Speech is of normal rate, volume, and tone. Affect is flat to tearful. Mood is depressed. Thought process is organized and goal directed. She denies thought disorder in the form of hallucinations or delusions. She admits to suicidal thoughts and a plan, but no intent at this time. She denies homicidality. Memory functions are intact. Fund of knowledge is intact. Intelligence is estimated to be average. Insight and judgment are impaired. Consultations none Hospital Course (1) Major depressive disorder, recurrent severe without psychotic features 08/18 - Continue Zoloft 50 mg. daily, titrating as tolerated - Encourage participation in group and individual counseling - Q 15 min checks for safety - Family meeting scheduled with this afternoon - Will need a psychiatric prescriber - Coordinate with CAPS counselor - Assist the patient to learn and utilize healthy coping strategies 08/19 and 08/20 - Increase Zoloft to 100 mg. daily first dose at that level 08/20/16 08/21/16 Patient to continue zoloft 100mg as outpatient. She reports intact mood and feels hopeful realizing the support of her friends but also to work with outpatient behavioral health providers. She denies SE to medications. Discussed her poor sleep prior to admission and that she is sleeping well here. Will discharge on prn vistaril 25-50mg/hs prn insomnia discussing r/b/se/a of this medication. She may also trial melatonin 3-10mg/hs prn insomnia and discussed r/b/se/a of this supplement to be purchased OTC MSE: patient is alert and oriented, cooperative, well groomed, good EC, and spont speech r/r/r/v&t, NAD, she is future oriented, describes her mood as good. Int Avg, recall intact, no evidence of thought disroder, denies SI, intention or plan, I/J intact gait and station are stable without assistance. PMA is unremarkable She is stable today, and her behavior is congruent with her stated mood for last several days, she denies SI, intention or plan and can generate a plan to seek support if she again is having SI or urge to self harm. SHe is future oriented and able to discuss ways to address the stressors that precipitated need for admission.She will be discharged at her request as she and provider feel that she is ready She is not imminent danger to self or others and outpatient care is least restrictive environment.. (2) YESSY (generalized anxiety disorder) 08/18 - Expose the patient to topics such as mindfulness, relaxation exercises and deep breathing - Prn vistaril for sleep/anxiety - Zoloft as above 08/19 and 08/20 - Increase Zoloft to 100 mg. starting on 08/20/16 08/21/16 see plan for MDD above Risk Factors Assessment : No /single/: Yes Higher / Fall in social status: No Access to guns: No Health problems: No Mental Health Diagnoses: No Substance use disorders: No Previous attempt: No Previous psychiatric stay: No Smoker: No Protective Factors Assessment Congregation beliefs: Yes : No Responsible for young children: No Employed: No Stable relationships: Yes Supportive family: Yes Laboratory ADMISSION LABORATORIES: 1. CBC with diff -- within normal limits with the exception of low WBCs at 3.72. 2. Chem profile -- within normal limits. 3. TSH -- within normal limits at 1.380. 4. tests -- negative. 5. Toxicology -- negative. 6. Urinalysis -- positive for 1+ bacteria, greater than 30 epithelials, and trace leukocyte esterase. Total Time Total Time Spent (min): Greater than 30 minutes Total Time Included: examination of the patient, discharge planning, medication reconciliation Tobacco Cessation at Discharge FDA approved Prescription: non-smoker Copies To Additional Copies To: Cecy Chavez PA-C
== END 2016-08-21 13:05 | disposition home or self-care (01) | DRG 885 ==
LOC: C.EDB 11:09 → C.MHU 14:54
PROVIDERS: ADMIT Psychiatry & Neurology Psychiatry; ATTEND Psychiatry & Neurology Psychiatry
DX: F33.2 Major depressive disorder, recurrent severe without psychotic features (principal); F41.1 Generalized anxiety disorder; Z82.49 Family history of ischemic heart disease and other diseases of the circulatory system

== ENCOUNTER 2017-03-16 13:19 | Observation (INO) | payer OTHER ==
[~2017-03-16] VITALS: Ht 172.7 cm; Wt 80.0 kg
[~2017-03-16 13:19] MED LIST changes: +ATR25 PO; +BCPILLS PO; +MONT1TAB3 PO; -PRED20TA2 PO; +SERT1TAB92 PO
[2017-03-16] MEDS ORDERED: SODIUM CHLORIDE 0.9% 1000ML 1,000 ML IV STA ×3 (13:40→16:01)
--- NOTE | 2017-03-16 13:47 | EMERGENCY ROOM VISIT NOTE ---
History Report prepared by Johanny: Isauro Baum Under the Supervision of: Dr. Inez Grier D.O. First contact with patient: 13:22 Stated Complaint: OVERDOSE History of Present Illness The patient is a 26 year old female who presents to the Emergency Room with an overdose that occurred 1 and a half hours ago. Per EMS, she has a history of depression. Around noon today, she took 90 pills of Mirtazapine after writing a letter stating that she was going to commit suicide. She began to have drowsiness and let someone know, who then called EMS. When EMS came, they called poison control and were told that there was nothing to do prehospital. The patient states that she did not take any other medications, alcohol, or illicit drugs. She is experiencing some nausea. She denies any other symptoms. Source of History: patient, EMS Onset: 1 and a half hours ago Position: other (Global) Symptom Intensity: moderate Quality: other (Drug Overdose) Timing: constant Associated Symptoms: + nausea Note: She denies any other complaints at this time. Review of Systems See HPI for pertinent positives & negatives. A total of 10 systems reviewed and were otherwise negative. 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 Current/Historical Medications Scheduled Etonogestrel (Nexplanon), 68 MG IM DIRECTED Montelukast Sodium (Singulair), 10 MG PO DAILY Allergies Coded Allergies: No Known Allergies (Unverified , 03/16/17) Physical Exam Vital Signs Date Time Temp Pulse Resp B/P (MAP) Pulse Ox O2 Delivery O2 Flow Rate FiO2 03/16/17 17:37 155/129 03/16/17 17:36 106 18 155/129 100 Room Air 03/16/17 17:31 169/113 03/16/17 17:19 160 26 100 03/16/17 17:00 154/102 03/16/17 16:31 167/101 03/16/17 16:19 106 100 03/16/17 16:01 156/77 03/16/17 16:00 114 20 151/77 100 Room Air 03/16/17 15:49 130 18 100 03/16/17 15:31 151/77 03/16/17 15:19 98 16 100 03/16/17 15:01 145/126 03/16/17 14:49 99 27 100 03/16/17 14:31 144/92 03/16/17 14:28 100 107/100 100 03/16/17 14:19 106 23 100 03/16/17 14:01 107/100 03/16/17 13:59 97 Room Air 03/16/17 13:49 92 16 99 03/16/17 13:31 128/82 03/16/17 13:30 36.4 94 18 125/82 98 Room Air 03/16/17 13:27 136/86 03/16/17 13:25 94 03/16/17 13:23 125/82 Physical Exam GENERAL: Somnolent but easily aroused, well appearing, well nourished, no distress, non-toxic EYE EXAM: normal conjunctiva, PERRL and EOM's grossly intact OROPHARYNX: no exudate, no erythema, lips, buccal mucosa, and tongue normal and mucous membranes are mildly dry NECK: supple, no nuchal rigidity, no adenopathy, non-tender LUNGS: Clear to auscultation. Normal chest wall mechanics HEART: Tachycardic but regular, no murmurs, S1 normal and S2 normal ABDOMEN: abdomen soft, non-tender, normo-active bowel sounds, no masses, no rebound or guarding. BACK: Back is symmetrical on inspection and there is no deformity, no midline tenderness, no CVA tenderness. SKIN: no rashes and no bruising UPPER EXTREMITIES: upper extremities are grossly normal. LOWER EXTREMITIES: No pitting edema. NEURO EXAM: Normal sensorium, cranial nerves II-XII grossly intact, normal speech, no gross weakness of arms, no gross weakness of legs. Medical Decision & Procedures Laboratory Results 03/16/17 13:30 Red Blood Count 4.90, Mean Corpuscular Volume 82.7, Mean Corpuscular Hemoglobin 29.2, Mean Corpuscular Hemoglobin Concent 35.3, Mean Platelet Volume 10.9, Neutrophils (%) (Auto) 43.0, Lymphocytes (%) (Auto) 49.3, Monocytes (%) (Auto) 7.0, Eosinophils (%) (Auto) 0.2, Basophils (%) (Auto) 0.2, Neutrophils # (Auto) 2.50, Lymphocytes # (Auto) 2.87, Monocytes # (Auto) 0.41, Eosinophils # (Auto) 0.01, Basophils # (Auto) 0.01 03/16/17 13:30 Test 03/16/17 13:30 03/16/17 14:02 03/16/17 14:23 03/16/17 16:48 White Blood Count 5.82 K/uL (4.8-10.8) Red Blood Count 4.90 M/uL (4.2-5.4) Hemoglobin 14.3 g/dL (12.0-16.0) Hematocrit 40.5 % (37-47) Mean Corpuscular Volume 82.7 fL (80-100) Mean Corpuscular Hemoglobin 29.2 pg (25-34) Mean Corpuscular Hemoglobin Concent 35.3 g/dl (32-36) Platelet Count 254 K/uL (130-400) Mean Platelet Volume 10.9 fL (7.4-10.4) Neutrophils (%) (Auto) 43.0 % Lymphocytes (%) (Auto) 49.3 % Monocytes (%) (Auto) 7.0 % Eosinophils (%) (Auto) 0.2 % Basophils (%) (Auto) 0.2 % Neutrophils # (Auto) 2.50 K/uL (1.4-6.5) Lymphocytes # (Auto) 2.87 K/uL (1.2-3.4) Monocytes # (Auto) 0.41 K/uL (0.11-0.59) Eosinophils # (Auto) 0.01 K/uL (0-0.5) Basophils # (Auto) 0.01 K/uL (0-0.2) RDW Standard Deviation 38.4 fL (36.4-46.3) RDW Coefficient of Variation 12.8 % (11.5-14.5) Immature Granulocyte % (Auto) 0.3 % Immature Granulocyte # (Auto) 0.02 K/uL (0.00-0.02) Prothrombin Time 11.1 SECONDS (9.0-12.0) Prothromb Time International Ratio 1.0 (0.9-1.1) Activated Partial Thromboplast Time 25.5 SECONDS (21.0-31.0) Partial Thromboplastin Ratio 1.0 Anion Gap 11.0 mmol/L (3-11) Est Creatinine Clear Calc Drug Dose 112.0 ml/min Estimated GFR () 108.1 Estimated GFR (Non- 93.2 BUN/Creatinine Ratio 9.1 (10-20) Calcium Level 9.2 mg/dl (8.5-10.1) Phosphorus Level 2.0 mg/dl (2.5-4.9) Magnesium Level 1.9 mg/dl (1.8-2.4) Total Bilirubin 0.6 mg/dl (0.2-1) Direct Bilirubin 0.1 mg/dl (0-0.2) Aspartate Amino Transf (AST/SGOT) 18 U/L (15-37) Alanine Aminotransferase (ALT/SGPT) 21 U/L (12-78) Alkaline Phosphatase 68 U/L (45-117) Total Protein 8.1 gm/dl (6.4-8.2) Albumin 4.1 gm/dl (3.4-5.0) Lipase 71 U/L (73-393) Human Chorionic Gonadotropin, Qual NEG (NEG) Salicylates Level < 1.7 mg/dl (2.8-20) Acetaminophen Level < 2 ug/ml (10-30) Bedside Glucose 87 mg/dl (70-90) Ethyl Alcohol mg/dL < 3.0 mg/dl (0-3) Urine Color ORANGE Urine Appearance CLEAR (CLEAR) Urine pH 6.5 (4.5-7.5) Urine Specific [place] 1.015 (1.000-1.030) Urine Protein TRACE (NEG) Urine Glucose (UA) NEG (NEG) Urine Ketones TRACE (NEG) Urine Occult Blood 3+ (NEG) Urine Nitrite NEG (NEG) Urine Bilirubin NEG (NEG) Urine Urobilinogen NEG (NEG) Urine Leukocyte Esterase TRACE (NEG) Urine WBC (Auto) 1-5 /hpf (0-5) Urine RBC (Auto) >30 /hpf (0-4) Urine Hyaline Casts (Auto) 1-5 /lpf (0-5) Urine Epithelial Cells (Auto) >30 /lpf (0-5) Urine Bacteria (Auto) NEG (NEG) Urine Opiates Screen NEG (NEG) Urine Methadone, Qualitative NEG (NEG) Urine Barbiturates NEG (NEG) Urine Phencyclidine (PCP) Level NEG (NEG) Ur Amphetamine/Methamphetamine NEG (NEG) MDMA (Ecstasy) Screen NEG (NEG) Urine Benzodiazepines Screen NEG (NEG) Urine Cocaine Metabolite NEG (NEG) Urine Marijuana (THC) NEG (NEG) Laboratory results per my review. Medications Administered Medications (Trade) Dose Ordered Sig/Ade Route Start Time Stop Time Status Last Admin Dose Admin Sodium Chloride 1,000 ml @ 999 mls/hr Q1H1M STAT IV 03/16/17 13:40 03/16/17 14:40 DC 03/16/17 16:00 999 MLS/HR Sodium Chloride 1,000 ml @ 999 mls/hr Q1H1M STAT IV 03/16/17 13:40 03/16/17 14:40 DC 03/16/17 14:05 999 MLS/HR Sodium Chloride 1,000 ml @ 999 mls/hr Q1H1M STAT IV 03/16/17 16:01 03/16/17 17:01 DC 03/16/17 16:18 999 MLS/HR Ondansetron HCl (Zofran Inj) 4 mg NOW STAT IV 03/16/17 16:01 03/16/17 16:02 DC 03/16/17 16:18 4 MG Lorazepam (Ativan Inj) 0.5 mg NOW STAT IV 03/16/17 16:39 03/16/17 16:40 DC 03/16/17 17:35 0.5 MG Potassium Chloride (Klor-Con M10) 20 meq NOW STAT PO 03/16/17 16:45 03/16/17 16:47 DC 03/16/17 17:36 20 MEQ Potassium Chloride (Kcl 10 Meq / Wtr) 20 meq NOW STAT IV 03/16/17 16:45 03/16/17 16:47 DC 03/16/17 17:35 20 MEQ Ondansetron HCl (Zofran Inj) 4 mg NOW STAT IV 03/16/17 17:19 03/16/17 17:25 DC 03/16/17 17:34 4 MG Sodium Chloride 1,000 ml @ 125 mls/hr Q8H IV 03/16/17 17:28 04/15/17 17:27 03/16/17 18:00 125 MLS/HR ECG Indication: toxicologic Rate (beats per minute): 92 Rhythm: sinus rhythm Findings: no acute ischemic change, other (Normal axis, normal intervals, isolated t-wave inversion in V3) Change: Repeat ECG showed: Sinus tachycardia 116, normal intervals normal axis, no ischemia or ectopy, QTC decreased from prior ED Course 1322: The patient was evaluated in room A10. A complete history and physical exam was performed. 1340: Ordered Sodium Chloride 1000 ml @ 999 mls/hr IV, Sodium Chloride 1000 ml @ 999 mls/hr IV 1412: The patient wakes up easily and is still nauseated. 1600: Upon reevaluation, she is still nauseated and her heart rate is going up. We will get a repeat ECG. 1601: Ordered Zofran Inj 4 mg IV, Sodium Chloride 1000 ml @ 999 mls/hr IV 1639: Ordered Ativan Inj 0.5 mg IV 1640: I rechecked the patient at this time. She is awake, alert, and talking on the phone. She is tachycardic without hyperreflexia or clonus. The repeat ECG showed Sinus tachycardia at 116 with a normal axis, normal intervals, no ectopy , and no acute ischemic changes. Her QTC has decreased from the first ECG. 1643: Upon reevaluation, the patient is resting. I discussed the findings and the treatment plan with the patient. She expresses agreement and understanding. I spoke with Dr. Bronson of the [facility]. He recommended replacing the patient's potassium with 20 meq PO and 20 meq IV. She will be evaluated by him for further management. 1645: Ordered Potassium Chloride 20 meq IV, Potassium Chloride 20 meq PO Medical Decision Differential diagnosis: Etiologies such as toxicologic, medication overdose, infection, hypoglycemia, electrolyte abnormalities, cardiac sources, intracerebral event, neurologic, as well as others were entertained. no evidence of serotonin syndrome, no seizure like activity, pt drowsy thru peak of mirtazepine, however given long half life and risk of complications, pt admitted medically for continued observation before she could be medically cleared for psych evaluation. [facility] initiated 302. Pt monitored in the ER for several hours and level of somnolence improved. Pt given IVF. Tachycardia initially improved, then returned, more likely secondary to anxiety concerning the situation. Pt given additional IVF and bzd to help. VS otw stable, labs reassuring. No hyponatremia, no evidence of rhabdo. No hx of trauma, doubt additional coingestion. Medication Reconcilliation Current Medication List: was personally reviewed by me Blood Pressure Screening Patient's blood pressure: Elevated blood pressure Blood pressure disposition: Elevated BP felt to be situational Consults Time Called: 1640 Consulting Physician: Dr. Aiyana DUBON Returned Call: [phone] I reviewed the patient's case with him. He recommended replacing her potassium. He will evaluate the patient for further management. Impression Primary Impression: Intentional drug overdose Additional Impressions: Depression Anxiety Tachycardia Hypokalemia Scribe Attestation The scribe's documentation has been prepared under my direction and personally reviewed by me in its entirety. I confirm that the note above accurately reflects all work, treatment, procedures, and medical decision making performed by me. Departure Information Dispostion Being Evaluated By Hospitalist Referrals No Doctor, Assigned (PCP) Problem Qualifiers Primary Impression: Intentional drug overdose Encounter type: initial encounter Qualified Codes: T50.902A - Poisoning by unspecified drugs, medicaments and biological substances, intentional self-harm , initial encounter Additional Impressions: Depression Depression Type: major depressive disorder Major depression recurrence: recurrent Active/Remission status: currently active Major depression episode severity: severe Psychotic features: without psychotic features Qualified Codes: F33.2 - Major depressive disorder, recurrent severe without psychotic features
[2017-03-16 14:21] LABS: BASO % 0.2 %; BASO ABS # 0.01 K/uL (0-0.2); COMPLETE YES; EOS % 0.2 %; HEMATOCRIT 40.5 % (37-47); IG% 0.3 %; LYMPH % 49.3 %; LYMPH ABS # 2.87 K/uL (1.2-3.4); MEAN CELL VOLUME 82.7 fL (80-100); MEAN CORPUSCULAR HEMOGLOBIN 29.2 pg (25-34); MEAN CORPUSCULAR HGB CONC 35.3 g/dl (32-36); MEAN PLATELET VOLUME 10.9 fL (7.4-10.4); PLATELET COUNT 254 K/uL (130-400); WHITE BLOOD COUNT 5.82 K/uL (4.8-10.8)
[2017-03-16 14:27] LABS: BUN/CREATININE RATIO 9.1 (10-20); CALCIUM 9.2 mg/dl (8.5-10.1); CREATININE 0.87 mg/dl (0.60-1.20); MAGNESIUM 1.9 mg/dl (1.8-2.4); POTASSIUM 2.9 mmol/L (3.5-5.1)
[2017-03-16 14:33] LABS: PREG INTERNAL NEGATIVE QC NEG CLEAR BACKGROUND; PREG INTERNAL POSITIVE QC POS CONTROL LINE; PROTHROMBIN TIME (PATIENT) 11.1 SECONDS (9.0-12.0)
[2017-03-16 14:42] LABS: ACETAMINOPHEN < 2 ug/ml (10-30)
[2017-03-16] MEDS ORDERED: ETON1IMP2 IM (15:54)
[2017-03-16] MEDS ORDERED: ONDANSETRON INJ 2 MG/ML 2 ML VIAL IV STA ×2 (16:01→17:19)
[2017-03-16] MEDS ORDERED: LORAZEPAM 2 MG/ML 1 ML VIAL IV STA (16:39)
[2017-03-16] MEDS ORDERED: POTASSIUM CHLORIDE 10 MEQ TABCR PO STA (16:45)
[2017-03-16] MEDS ORDERED: POTASSIUM CHLORIDE 10 MEQ / 100ML WTR IV STA (16:45)
--- NOTE | 2017-03-16 17:03 | History and Physical ---
History & Physical Date & Time of Service: Mar 16, 2017 at 17:02 Chief Complaint: Overdose Primary Care Physician: No Doctor, Assigned History of Present Illness Source: patient This is a 26 yo F with PMHx of anxiety and depression who presents after intentional suicidal attempt via overdose with Remeron ingestion. The patient is here with a friend, Siobhan, who is an administrative employee of [employer]. The patient reports feeling very ill, nauseous, having abdominal pain, and headache. She feels her heart beating fast but states it has improved since earlier. She is able to tell me that she took mirtazapine qty of 90 tablets, but she is unable to recall the dosage. Pt denies ever having homicidal thoughts in the past. She neither denies nor admits suicidal thoughts in the past. Siobhan provided more pertinent psychiatric history: She has known the patient for about one year. The pt is in the 2nd year for her masters degree and feels a large amount of stress with her school work. 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 During last semester, the patient had a suicidal ideation and wrote several suicide notes. Her boyfriend Pratik, found these notes and subsequently she was admitted to the [facility] for an unknown amount of time. She is now attempting to make up all her missed class work from that inpatient stay. From what Siobhan palencia is not the patient has struggled with depression and anxiety for a long time. She appears to be obsessive-compulsive and feels that anything less than an A is unacceptable. The patient has previously seen Cecy Chavez PA-C at [facility] in [place] for psychiatric medications. The last time was August 2016. She is currently not taking anything other than mirtazapine. She has trialed antidepressants before but feels the medications make her feel funny, and does not like the side effects. Past Medical/Surgical History Anxiety Depression Family History Hypertension Social History Smoking Status: Never Smoker Smokeless Tobacco Use: No Alcohol Use: socially (on weekends socially) Drug Use: none Marital Status: single Occupational Status: [employer] student Allergies Coded Allergies: No Known Allergies (Unverified , 03/16/17) Home Medications Scheduled Etonogestrel (Nexplanon), 68 MG IM DIRECTED Montelukast Sodium (Singulair), 10 MG PO DAILY Review of Systems Constitutional: No fever, sweats or chills Eyes: No diplopia, no worsening or blurred vision ENT: normal hearing, no trouble swallowing Respiratory: No cough, sputum, dyspnea at rest or on exertion Cardiovascular: No chest pain, tightness or palpitations Abdomen: + Abd pain, nausea, vomiting. No diarrhea or constipation Musculoskeletal: No joint pa. In, calf pain, swelling Neurologic: No weakness, numbness/tingling, or balance problems Psychiatric: + anxiety and depression Skin: No rash or itch Physical Exam Vital Signs Date Time Temp Pulse Resp B/P (MAP) Pulse Ox O2 Delivery O2 Flow Rate FiO2 03/16/17 16:00 114 20 151/77 100 Room Air 03/16/17 14:28 100 107/100 100 03/16/17 13:59 97 Room Air 03/16/17 13:30 36.4 94 18 125/82 98 Room Air 03/16/17 13:25 94 General: somnolent but responsive to verbal stimuli, + mild distress, - [place] female Head: Normocephalic, atraumatic ENT: PERRL, EOMI, no pharyngeal exudate, mucous membranes moist Chest: Clear to auscultation, on room air, no adventitious breath sounds Cardiac: +Tachycardic, no murmur, no JVD, +bounding peripheral pulses, good capillary refill Abdominal: NABS x 4 quadrants, soft, nontender to palpation, no rebound, guarding or tenderness Extremities: Normal inspection, no peripheral edema or erythema, calfs nontender to palpation Psych: Normal mood and affect Neuro: AAO x 3, strength intact bilaterally and related 5/5, no motor deficits, speech is clear, no peripheral sensory deficits Diagnostics Laboratory Results Results Past 24 Hours Test 03/16/17 13:30 03/16/17 14:02 03/16/17 14:23 03/16/17 16:48 Range/Units White Blood Count 5.82 4.8-10.8 K/uL Red Blood Count 4.90 4.2-5.4 M/uL Hemoglobin 14.3 12.0-16.0 g/dL Hematocrit 40.5 37-47 % Mean Corpuscular Volume 82.7 80-100 fL Mean Corpuscular Hemoglobin 29.2 25-34 pg Mean Corpuscular Hemoglobin Concent 35.3 32-36 g/dl Platelet Count 254 130-400 K/uL Mean Platelet Volume 10.9 7.4-10.4 fL Neutrophils (%) (Auto) 43.0 % Lymphocytes (%) (Auto) 49.3 % Monocytes (%) (Auto) 7.0 % Eosinophils (%) (Auto) 0.2 % Basophils (%) (Auto) 0.2 % Neutrophils # (Auto) 2.50 1.4-6.5 K/uL Lymphocytes # (Auto) 2.87 1.2-3.4 K/uL Monocytes # (Auto) 0.41 0.11-0.59 K/uL Eosinophils # (Auto) 0.01 0-0.5 K/uL Basophils # (Auto) 0.01 0-0.2 K/uL RDW Standard Deviation 38.4 36.4-46.3 fL RDW Coefficient of Variation 12.8 11.5-14.5 % Immature Granulocyte % (Auto) 0.3 % Immature Granulocyte # (Auto) 0.02 0.00-0.02 K/uL Prothrombin Time 11.1 9.0-12.0 SECONDS Prothromb Time International Ratio 1.0 0.9-1.1 Activated Partial Thromboplast Time 25.5 21.0-31.0 SECONDS Partial Thromboplastin Ratio 1.0 Sodium Level 139 136-145 mmol/L Potassium Level 2.9 3.5-5.1 mmol/L Chloride Level 108 98-107 mmol/L Carbon Dioxide Level 20 21-32 mmol/L Anion Gap 11.0 3-11 mmol/L Blood Urea Nitrogen 8 7-18 mg/dl Creatinine 0.87 0.60-1.20 mg/dl Est Creatinine Clear Calc Drug Dose 112.0 ml/min Estimated GFR () 108.1 Estimated GFR (Non- 93.2 BUN/Creatinine Ratio 9.1 10-20 Random Glucose 92 70-99 mg/dl Calcium Level 9.2 8.5-10.1 mg/dl Phosphorus Level 2.0 2.5-4.9 mg/dl Magnesium Level 1.9 1.8-2.4 mg/dl Total Bilirubin 0.6 0.2-1 mg/dl Direct Bilirubin 0.1 0-0.2 mg/dl Aspartate Amino Transf (AST/SGOT) 18 15-37 U/L Alanine Aminotransferase (ALT/SGPT) 21 12-78 U/L Alkaline Phosphatase 68 45-117 U/L Total Creatine Kinase 154 26-192 U/L Total Protein 8.1 6.4-8.2 gm/dl Albumin 4.1 3.4-5.0 gm/dl Lipase 71 73-393 U/L Human Chorionic Gonadotropin, Qual NEG NEG Salicylates Level < 1.7 2.8-20 mg/dl Acetaminophen Level < 2 10-30 ug/ml Bedside Glucose 87 70-90 mg/dl Ethyl Alcohol mg/dL < 3.0 0-3 mg/dl EKG Vent. rate 116 BPM AL interval 156 ms QRS duration 82 ms QT/QTc 334/464 ms P-R-T axes 74 84 35 Sinus tachycardia Biatrial enlargement Abnormal ECG When compared with ECG of 16-MAR-2017 13:35, No significant change was found Confirmed by JODEE TAY ([id number]) on 03/16/2017 4:35:24 PM Impression Assessment and Plan 26 yo F with PMHx of anxiety and depression who presents after intentional suicidal attempt via overdose with Remeron ingestion Suicidal attempt Depression Anxiety - Admit to the patient to telemetry, PCU, for observation - We will provide the patient with supportive care, NSS at 125 mL/hr, vistaril 25 mg Q6H prn anxiety - Patient received 0.5 mg Ativan in the ER for anxiety - Continue antiemetics with Zofran - Awaiting toxicology screening report - D/C remeron - will need to determine the dosage and milligrams prior to discharge. Attempted to contact [facility] campus pharmacy however it is currently closed - Suicidal precautions - One-to-one bedside sitter - Psychiatry consulted - follows with [facility] as an outpatient. Would attempt to contact their office during normal office hours for information regarding medications. Hypokalemia - Replaced with IV and by mouth supplementation in the ER - Follow PRP with am labs DVT ppx: Teds, SCDs Full CODE STATUS: Full code Disposition: Patient from home, to assist with discharge planning, D/c to inpatient psych likely within 24 hours Level of Care Telemetry Advanced Directives Existing Advance Directive: No Existing Living Will: No Existing Power of Patent Chemist: No Existing Health Care Proxy: No Resuscitation Status FULL RESUSCITATION VTE Prophylaxis VTE Risk Assessment Done? Y/N: Yes Risk Level: Very Low Given or contraindicated: T.E.D. Stockings, SCD's
[2017-03-16 17:04] LABS: URINE APPEARANCE CLEAR (CLEAR); URINE BILIRUBIN NEG (NEG); URINE COLOR ORANGE; URINE EPITHELIAL CELL AUTO >30 /lpf (0-5); URINE NITRITE NEG (NEG); URINE PH 6.5 (4.5-7.5); URINE SPECIFIC GRAVITY 1.015 (1.000-1.030); UROBILINOGEN NEG (NEG)
[2017-03-16 17:05] LABS: MANUAL MICROSCOPIC REQUIRED? NO; REVIEW REQ? NO
[2017-03-16 17:24] LABS: BENZODIAZEPINE, URINE NEG (NEG); COCAINE,URINE NEG (NEG); PHENCYCLIDINE, URINE NEG (NEG)
[2017-03-16] MEDS ORDERED: LORAZEPAM 2 MG/ML 1 ML VIAL IV PRN (17:30)
[2017-03-16] MEDS ORDERED: POLYETHYLENE (MIRALAX) 17 GM PACK PO PRN (17:30)
[2017-03-16] MEDS ORDERED: hydrOXYzine HCL 25 MG TAB PO PRN (17:30)
[2017-03-16] MEDS ORDERED: ONDANSETRON INJ 2 MG/ML 2 ML VIAL IV PRN (17:30)
[2017-03-16] MEDS: SODIUM CHLORIDE 0.9% 1000ML 1,000 ML IV SCH (18:00)
[2017-03-16] MEDS ORDERED: METOPROLOL TARTRATE 1 MG/ML VIAL IV STA (18:17)
[2017-03-16] MEDS ORDERED: METOPROLOL TARTRATE 1 MG/ML VIAL IV PRN (18:30)
[2017-03-16 19:46] VITALS: O2SAT 100; Ht 172.7 cm; Wt 80.0 kg
[2017-03-16] MEDS ORDERED: IV FLUIDS COMPLETED PRN (20:15)
[2017-03-16 20:17] VITALS: BP 135/90; PULSE 97; TEMP 37; O2SAT 98
[2017-03-16 23:05] VITALS: BP 142/91; PULSE 102; TEMP 36.7; O2SAT 99
[2017-03-17] VITALS (8 sets, daily range): BP systolic 143–164; BP diastolic 91–113; PULSE 69–91; TEMP 36.8–37.6; O2SAT 92–100
[2017-03-17 00:04] LABS: CALCIUM 8.2 mg/dl (8.5-10.1); CREATININE 0.9 mg/dl (0.60-1.20); POTASSIUM 4.2 mmol/L (3.5-5.1)
[2017-03-17] MEDS: SODIUM CHLORIDE 0.9% 1000ML 1,000 ML IV SCH ×3 (01:59→17:13)
[2017-03-17 07:51] LABS: COMPLETE YES; EOS % 0.3 %; HEMATOCRIT 36.8 % (37-47); IG% 0.2 %; LYMPH % 35.8 %; LYMPH ABS # 2.29 K/uL (1.2-3.4); MEAN CELL VOLUME 84.2 fL (80-100); MEAN CORPUSCULAR HEMOGLOBIN 29.3 pg (25-34); MEAN CORPUSCULAR HGB CONC 34.8 g/dl (32-36); MEAN PLATELET VOLUME 10.4 fL (7.4-10.4); MONO % 8.5 %; NEUT % 55.2 %; PLATELET COUNT 240 K/uL (130-400); RED BLOOD COUNT 4.37 M/uL (4.2-5.4); WHITE BLOOD COUNT 6.39 K/uL (4.8-10.8)
[2017-03-17 08:19] LABS: CALCIUM 8.4 mg/dl (8.5-10.1); CREATININE 0.88 mg/dl (0.60-1.20); POTASSIUM 3.6 mmol/L (3.5-5.1)
[2017-03-17 08:35] LABS: THYROID STIMULATING HORMONE 0.977 uIu/ml (0.300-4.500)
[2017-03-17] MEDS ORDERED: LORAZEPAM 2 MG/ML 1 ML VIAL IV PRN (08:45)
[2017-03-17] MEDS ORDERED: LORAZEPAM INJ 0.5 MG in SYRINGE 0.75 ML IV PRN (09:30)
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
[2017-03-17] MEDS: BuPROPion SR 100 MG TABCR PO SCH (18:23)
[2017-03-17] MEDS ORDERED: METOPROLOL TARTRATE 1 MG/ML VIAL IV PRN (21:15)
--- NOTE | 2017-03-17 21:31 | Hospitalist Progress Note ---
Hospitalist Progress Note Date of Service Mar 17, 2017. Subjective Pt evaluation today including: conversation w/ patient Pt with persistently elevated BPs, some ST into 130s with ambulation. Denies CLAY , CP, SOB, Abd pain, N/V, diarrhea, joint or muscle pains. She has had a stuffy nose/cold symptoms recently and was taking Mucinex-D and Theraflu prior to admission. She has a h/o HTN secondary to OCPs as a teenager which resolved after dc OCPs All Other Systems: Reviewed and Negative Objective Vital Signs Date Time Temp Pulse Resp B/P (MAP) Pulse Ox O2 Delivery O2 Flow Rate FiO2 03/17/17 20:35 Room Air 03/17/17 18:54 36.9 81 17 154/106 (122) 98 Room Air 03/17/17 16:11 Room Air 03/17/17 14:51 37.5 80 18 150/107 (121) 99 Room Air 03/17/17 12:00 Room Air 03/17/17 11:48 37.1 69 20 155/110 (125) 99 Room Air 69 149/102 (118) 03/17/17 09:29 85 144/100 (115) 03/17/17 08:00 Room Air 03/17/17 07:56 80 152/106 (121) 03/17/17 07:50 37.6 83 20 153/108 (123) 100 Room Air 03/17/17 04:00 Room Air 03/17/17 02:35 36.9 91 16 143/91 (108) 92 Room Air 03/17/17 00:00 Room Air 03/16/17 23:05 36.7 102 18 142/91 (108) 99 Room Air Physical Exam General Appearance: WD/WN, no apparent distress Eyes: normal inspection, PERRL, EOMI, sclerae normal ENT: hearing grossly normal, pharynx normal Neck: supple, no JVD, trachea midline Respiratory/Chest: lungs clear, normal breath sounds, no respiratory distress, no accessory muscle use Cardiovascular: regular rate, rhythm, no edema, no gallop, no murmur Abdomen: normal bowel sounds, non tender, soft, no organomegaly, no pulsatile mass Extremities: non-tender, normal inspection, no pedal edema Neurologic/Psychiatric: alert, normal mood/affect, oriented x 3 Skin: normal color, warm/dry, no rash Laboratory Results Last 24 Hours Test 03/16/17 23:00 03/17/17 07:01 Sodium Level 143 mmol/L 144 mmol/L Potassium Level 4.2 mmol/L 3.6 mmol/L Chloride Level 112 mmol/L 114 mmol/L Carbon Dioxide Level 24 mmol/L 24 mmol/L Anion Gap 7.0 mmol/L 6.0 mmol/L Blood Urea Nitrogen 6 mg/dl 5 mg/dl Creatinine 0.90 mg/dl 0.88 mg/dl Est Creatinine Clear Calc Drug Dose 108.2 ml/min 110.0 ml/min Estimated GFR () 103.7 106.6 Estimated GFR (Non- 89.5 92.0 BUN/Creatinine Ratio 7.0 6.0 Random Glucose 131 mg/dl 79 mg/dl Calcium Level 8.2 mg/dl 8.4 mg/dl White Blood Count 6.39 K/uL Red Blood Count 4.37 M/uL Hemoglobin 12.8 g/dL Hematocrit 36.8 % Mean Corpuscular Volume 84.2 fL Mean Corpuscular Hemoglobin 29.3 pg Mean Corpuscular Hemoglobin Concent 34.8 g/dl Platelet Count 240 K/uL Mean Platelet Volume 10.4 fL Neutrophils (%) (Auto) 55.2 % Lymphocytes (%) (Auto) 35.8 % Monocytes (%) (Auto) 8.5 % Eosinophils (%) (Auto) 0.3 % Basophils (%) (Auto) 0.0 % Neutrophils # (Auto) 3.53 K/uL Lymphocytes # (Auto) 2.29 K/uL Monocytes # (Auto) 0.54 K/uL Eosinophils # (Auto) 0.02 K/uL Basophils # (Auto) 0.00 K/uL RDW Standard Deviation 39.5 fL RDW Coefficient of Variation 12.9 % Immature Granulocyte % (Auto) 0.2 % Immature Granulocyte # (Auto) 0.01 K/uL Phosphorus Level 2.0 mg/dl Magnesium Level 2.0 mg/dl Total Bilirubin 0.5 mg/dl Direct Bilirubin 0.1 mg/dl Aspartate Amino Transf (AST/SGOT) 16 U/L Alanine Aminotransferase (ALT/SGPT) 17 U/L Alkaline Phosphatase 57 U/L Total Protein 6.8 gm/dl Albumin 3.5 gm/dl Thyroid Stimulating Hormone (TSH) 0.977 uIu/ml Assessment and Plan 26 yo F with PMHx of anxiety and depression who presents after intentional suicidal attempt via overdose with Remeron ingestion of #90 tabs of 15 mg tab Suicidal attempt, Depression seen by Psych today and no 302 indicated but pt wants to voluntarily admit to BHU after being medically cleared. -continue 1:1 Mirtazapine overdose-reviewed toxicology reports for overdose of this drug. She is currently hypertensive and tachycardic. Usually can get hypotensive with this drug so not clear why hypertensive. Could be from anxiety. Was also taking cold meds prior to admission. ECGs ok, lytes and CPK ok, no arrhythmias on tele. No other signs of serotonin syndrome - continue telemetry - can dc IVFs -avoid other anticholinergic drugs at this point -could give cyproheptadine if develops serotonin syndrome - give Ativan prn anxiety -check PRP, CBC, CPK in AM Elevated BP-could be due to reasons as above -lopressor prn -if not improving, consider starting antihypertensive Hypokalemia-resolved - Replaced with IV and by mouth supplementation in the ER - Follow PRP with am labs DVT ppx: Teds, SCDs Full CODE STATUS: Full code Disposition: to U when medically stable
[2017-03-18] VITALS (7 sets, daily range): BP systolic 137–164; BP diastolic 89–118; PULSE 73–84; TEMP 36.7–37.4; O2SAT 97–100
[2017-03-18] MEDS: SODIUM CHLORIDE 0.9% 1000ML 1,000 ML IV SCH (00:55)
[2017-03-18 06:31] LABS: HEMATOCRIT 39.7 % (37-47); MEAN CORPUSCULAR HEMOGLOBIN 27.4 pg (25-34); MEAN CORPUSCULAR HGB CONC 32.2 g/dl (32-36); MEAN PLATELET VOLUME 10.3 fL (7.4-10.4); PLATELET COUNT 246 K/uL (130-400); RED BLOOD COUNT 4.67 M/uL (4.2-5.4); WHITE BLOOD COUNT 4.26 K/uL (4.8-10.8)
[2017-03-18 07:06] LABS: BUN/CREATININE RATIO 6.8 (10-20); CALCIUM 8.3 mg/dl (8.5-10.1); CREATININE 0.86 mg/dl (0.60-1.20); MAGNESIUM 1.9 mg/dl (1.8-2.4); POTASSIUM 3.8 mmol/L (3.5-5.1)
[2017-03-18 07:20] LABS: BASO % 0.2 %; BASO ABS # 0.01 K/uL (0-0.2); COMPLETE YES; EOS % 0.5 %; LYMPH % 54.7 %; LYMPH ABS # 2.33 K/uL (1.2-3.4); MONO % 9.9 %; NEUT % 34.7 %
[2017-03-18] MEDS: BuPROPion SR 100 MG TABCR PO SCH ×2 (07:28→12:43)
[2017-03-18] MEDS: ACETAMINOPHEN 325 MG TAB PO PRN ×2 (07:32→19:37)
[2017-03-18] MEDS ORDERED: METOPROLOL TARTRATE 25 MG TAB PO ONE (13:45)
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
[2017-03-18] MEDS ORDERED: HydrALAZINE HCL 20 MG/ML VIAL IV. PRN (16:30)
[2017-03-18] MEDS ORDERED: HydrALAZINE HCL 20 MG/ML VIAL ONE (16:34)
[2017-03-18] MEDS ORDERED: LORAZEPAM 1 MG TAB PO PRN (17:45)
[2017-03-18] MEDS ORDERED: MULTI-VITAMIN INFUSION INJ 10 ML, THIAMINE HCL INJ 100 MG, FoLIC ACID INJ 1 MG in SODIU... IV ONE (18:15)
--- NOTE | 2017-03-18 19:34 | DIAGNOSTIC IMAGING REPORT ---
DUPLEX RENAL ARTERY ULTRASOUND CLINICAL HISTORY: hypertension COMPARISON STUDY: No previous studies for comparison. FINDINGS: The peak systolic velocity within the aorta is 100 m/s. The peak systolic velocity within the right renal artery is 57 cm/s. There appear to be 2 main left renal arteries. The highest the systolic velocity is 143 cm/s. Renal obstruction. Normal. The right kidney measures 10.7 cm in length. The left kidney measures 10.6 cm in length. IMPRESSION: No ultrasonographic evidence of renal artery stenosis. Electronically signed by: Cleve Pereira M.D. 03/18/2017 7:33 PM Dictated Date/Time: 03/18/2017 7:31 PM
[2017-03-18] MEDS ORDERED: METOPROLOL TARTRATE 25 MG TAB PO SCH (21:00)
[2017-03-18] MEDS: METOPROLOL TARTRATE 25 MG TAB PO SCH (22:22)
--- NOTE | 2017-03-18 23:27 | Hospitalist Progress Note ---
Hospitalist Progress Note Date of Service Mar 18, 2017. Subjective Pt evaluation today including: conversation w/ patient Pt feels fine, has no complaints. No CP or SOB, no headache, not lightheaded. SHe is anxious about being in the hospital;says she does not want to be here. BPs running high all day. Pt reports +FH of sister, mother, MGM all with HTN at young ages. Pt was on BP med for 6 months and then stopped after that a few years ago, can't recall the name. Says when she exercises her BP is improved; she checks it at the drug store. She reports it has been 120/80 this past summer when she was checking it more frequently. SHe has not been exercising much though the last 1-2 months All Other Systems: Reviewed and Negative Objective Vital Signs Tele reviewed-NSR Date Time Temp Pulse Resp B/P (MAP) Pulse Ox O2 Delivery O2 Flow Rate FiO2 03/18/17 19:29 37.4 84 18 156/112 (127) 97 Room Air 03/18/17 16:30 73 163/115 (131) 03/18/17 16:09 37.4 75 16 164/118 (133) 99 Room Air 03/18/17 16:05 Room Air 03/18/17 12:10 Room Air 03/18/17 10:57 37.1 80 16 145/101 (116) 100 Room Air 03/18/17 08:15 Room Air 03/18/17 07:12 36.8 79 14 137/89 (105) 100 Room Air 03/18/17 04:00 Room Air 03/18/17 03:34 36.7 78 18 137/95 (109) 99 Room Air 03/18/17 00:00 Room Air Physical Exam General Appearance: WD/WN (overweight), no apparent distress Eyes: normal inspection, sclerae normal ENT: hearing grossly normal Neck: trachea midline Respiratory/Chest: lungs clear, normal breath sounds, no respiratory distress, no accessory muscle use Cardiovascular: regular rate, rhythm, no edema, no gallop, no murmur Abdomen: normal bowel sounds, non tender, soft (and no bruits) Extremities: non-tender, normal inspection, no pedal edema, no calf tenderness Neurologic/Psychiatric: no motor/sensory deficits, alert, oriented x 3, + depressed affect Skin: normal color, warm/dry, no rash Laboratory Results Last 24 Hours Test 03/18/17 05:53 White Blood Count 4.26 K/uL Red Blood Count 4.67 M/uL Hemoglobin 12.8 g/dL Hematocrit 39.7 % Mean Corpuscular Volume 85.0 fL Mean Corpuscular Hemoglobin 27.4 pg Mean Corpuscular Hemoglobin Concent 32.2 g/dl Platelet Count 246 K/uL Mean Platelet Volume 10.3 fL Neutrophils (%) (Auto) 34.7 % Lymphocytes (%) (Auto) 54.7 % Monocytes (%) (Auto) 9.9 % Eosinophils (%) (Auto) 0.5 % Basophils (%) (Auto) 0.2 % Neutrophils # (Auto) 1.48 K/uL Lymphocytes # (Auto) 2.33 K/uL Monocytes # (Auto) 0.42 K/uL Eosinophils # (Auto) 0.02 K/uL Basophils # (Auto) 0.01 K/uL RDW Standard Deviation 40.7 fL RDW Coefficient of Variation 13.2 % Immature Granulocyte % (Auto) 0.0 % Immature Granulocyte # (Auto) 0.00 K/uL Sodium Level 142 mmol/L Potassium Level 3.8 mmol/L Chloride Level 113 mmol/L Carbon Dioxide Level 24 mmol/L Anion Gap 5.0 mmol/L Blood Urea Nitrogen 6 mg/dl Creatinine 0.86 mg/dl Est Creatinine Clear Calc Drug Dose 113.6 ml/min Estimated GFR () 109.6 Estimated GFR (Non- 94.6 BUN/Creatinine Ratio 6.8 Random Glucose 85 mg/dl Calcium Level 8.3 mg/dl Magnesium Level 1.9 mg/dl Total Bilirubin 0.6 mg/dl Direct Bilirubin 0.1 mg/dl Aspartate Amino Transf (AST/SGOT) 12 U/L Alanine Aminotransferase (ALT/SGPT) 17 U/L Alkaline Phosphatase 56 U/L Total Creatine Kinase 127 U/L Total Protein 7.0 gm/dl Albumin 3.4 gm/dl Assessment and Plan 26 yo F with PMHx of anxiety and depression who presents after intentional suicidal attempt via overdose with Remeron ingestion of #90 tabs of 15 mg tab Suicidal attempt, Depression seen by Psych-she will be admitted to [facility] after being medically cleared. -continue 1:1 -started on Wellbutrin but may be worsening her HTN-may need to stop this although BPs were high prior to starting it this admission Mirtazapine overdose-reviewed toxicology reports for overdose of this drug. She is currently hypertensive and tachycardic. Usually can get hypotensive with this drug so not clear why hypertensive. Could be from anxiety. Was also taking cold meds prior to admission. ECGs ok, lytes and CPK ok, no arrhythmias on tele. 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 Discussed risks/benefits of treatment with medication in addition to lifestyle changes. She is agreeable to starting meds. BPs may be exacerbated now by anxiety about hospitalization, possibly EtOH withdrawal if drinks more than she admitted to. Renal function normal -Start metoprolol 25mg po bid -check Renal Duplex US to r/o BILL as secondary cause -hydralazine prn hypertensive urgency -ativen prn EtOH withdrawal or anxiety -counseled on DASH diet, increasing exercise, weight loss Hypokalemia-resolved - Replaced with IV and by mouth supplementation in the ER - Follow PRP with am labs DVT ppx: Teds, SCDs Full CODE STATUS: Full code Disposition: to [facility] when medically stable hopefully in 1-2 days
[2017-03-19] VITALS (8 sets, daily range): BP systolic 128–156; BP diastolic 79–98; PULSE 67–82; TEMP 36.7–37.4; O2SAT 96–100
[2017-03-19] MEDS: METOPROLOL TARTRATE 25 MG TAB PO SCH ×2 (07:31→20:20)
[2017-03-19] MEDS: BuPROPion SR 100 MG TABCR PO SCH (07:31)
[2017-03-19 07:54] LABS: CALCIUM 8.8 mg/dl (8.5-10.1); CREATININE 0.93 mg/dl (0.60-1.20); POTASSIUM 3.8 mmol/L (3.5-5.1)
--- NOTE | 2017-03-19 12:05 | Psych Management Progress Note ---
Psychiatry Miscellaneous Date of Service: Mar 19, 2017. attempted to see patient this am but was in shower, recs would remain for inpatient psychiatric care when medically cleared given impulsive nature of attempt and hospital course thus far. Chart reviewed and case discussed with liaison and shift nurse. BP improved on metoprolol but ideally would be consistently less than 140/90 for non-hospital based facility referral. No bed anticipated today on 3S.
--- NOTE | 2017-03-19 18:02 | Hospitalist Progress Note ---
Hospitalist Progress Note Date of Service Mar 19, 2017. Subjective Pt evaluation today including: conversation w/ patient, conversation w/ regional sales consultant (correspondence dictator liasion) Pt feeling better today, BPs starting to come down on meds, no events on tele. She is now saying she is willing to voluntarily admit herself to [facility]. Psych would like BPs to be consistently under 140/90 prior to admission. Pt denies CP, SOB,Headache,ABd pain, constipation. All Other Systems: Reviewed and Negative Objective Vital Signs Date Time Temp Pulse Resp B/P (MAP) Pulse Ox O2 Delivery O2 Flow Rate FiO2 03/19/17 16:12 Room Air 03/19/17 15:35 37.3 67 18 137/95 (109) 96 Room Air 03/19/17 12:28 Room Air 03/19/17 11:05 37.4 74 20 143/95 (111) 100 03/19/17 08:14 Room Air 03/19/17 07:57 36.9 72 18 144/94 (111) 100 Room Air 03/19/17 04:51 37.2 74 16 144/97 (113) 99 Room Air 03/19/17 04:00 Room Air 03/18/17 23:59 Room Air 03/18/17 23:46 37.3 81 17 146/95 (112) 98 Room Air 03/18/17 20:00 Room Air 03/18/17 19:29 37.4 84 18 156/112 (127) 97 Room Air Physical Exam General Appearance: WD/WN, no apparent distress (and is more animated today) Eyes: normal inspection ENT: hearing grossly normal Neck: trachea midline Respiratory/Chest: lungs clear, normal breath sounds, no respiratory distress, no accessory muscle use Cardiovascular: regular rate, rhythm, no edema, no gallop, no murmur Abdomen: normal bowel sounds, non tender, soft, no organomegaly, no pulsatile mass Extremities: non-tender, normal inspection, no pedal edema, no calf tenderness Neurologic/Psychiatric: alert, oriented x 3, + pertinent finding (full affect, depressed mood) Skin: normal color, warm/dry, no rash Laboratory Results Last 24 Hours Test 03/19/17 06:56 Sodium Level 141 mmol/L Potassium Level 3.8 mmol/L Chloride Level 110 mmol/L Carbon Dioxide Level 23 mmol/L Anion Gap 8.0 mmol/L Blood Urea Nitrogen 9 mg/dl Creatinine 0.93 mg/dl Est Creatinine Clear Calc Drug Dose 104.9 ml/min Estimated GFR () 99.7 Estimated GFR (Non- 86.0 BUN/Creatinine Ratio 10.0 Random Glucose 85 mg/dl Calcium Level 8.8 mg/dl Magnesium Level 2.0 mg/dl Vitamin B12 Level 704 pg/mL Folate 10.62 ng/mL Assessment and Plan 26 yo F with PMHx of anxiety and depression who presents after intentional suicidal attempt via overdose with Remeron ingestion of #90 tabs of 15 mg tab Suicidal attempt, Depression, Impulsivity seen by Psych-she will be admitted to [facility] after being medically cleared-they prefer BPs < 140/90 consistently for 24 hrs. - 1:1 inadvertantly stopped last night and was on q15 checks in full view of RN station, but given she is still on 302 warrant, correspondence dictator recommends 1:1 until she signs voluntary commitment paperwork -started on Wellbutrin but may be worsening her HTN-now on hold Mirtazapine overdose-reviewed toxicology reports for overdose of this drug. She was hypertensive and tachycardic on admission. Usually can get hypotensive with this drug so not clear why hypertensive. Could be from anxiety. Was also taking cold meds prior to admission. ECGs ok, lytes and CPK ok, no arrhythmias on tele. 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 Discussed risks/benefits of treatment with medication in addition to lifestyle changes. She is agreeable to starting meds. BPs may be exacerbated by anxiety about hospitalization, possibly EtOH withdrawal if drinks more than she admitted to. Renal function normal. BPs much improved now Renal artery Duplex with anatomic variant 2 left main renal arteries but no stenosis -Started metoprolol 25mg po bid -hydralazine prn hypertensive urgency -ativen prn anxiety -counseled on DASH diet, increasing exercise, weight loss -will need PCP f/u after discharge Hypokalemia-resolved - Replaced with IV and by mouth supplementation in the ER - Follow PRP with am labs DVT ppx: Teds, SCDs, encouraged ambulation Full CODE STATUS: Full code Disposition: to [facility] when medically stable hopefully tomorrow if BPs consistently <140/90 x 24 hrs
[2017-03-20 07:14] VITALS: BP 135/91; PULSE 80; TEMP 36.9; O2SAT 99
[2017-03-20 08:00] VITALS: O2SAT 99
[2017-03-20] MEDS: METOPROLOL TARTRATE 25 MG TAB PO SCH (08:30)
[2017-03-20] MEDS ORDERED: LPR25 PO (11:59)
[2017-03-20] MEDS ORDERED: WLLSR100 PO (11:59)
--- NOTE | 2017-03-20 12:00 | Discharge Instructions ---
Discharge Instructions Date of Service Mar 20, 2017. Admission Reason for Admission: Intentional Drug Overdose Discharge Discharge Diagnosis / Problem: suicide gesture, hypertension Discharge Goals Goal(s): Diagnostic testing, Therapeutic intervention Activity Recommendations Activity Limitations: as noted below Lifting Limitations: gradually increase as tolerated . Current Hospital Diet Patient's current hospital diet: AHA Diet (Heart Healthy) Discharge Diet Recommended Diet: Low Sodium Diet (2gm Na) Pending Studies Studies pending at discharge: no Medical Emergencies . Who to Call and When: Medical Emergencies: If at any time you feel your situation is an emergency, please call 911 immediately. . Non-Emergent Contact Non-Emergency issues call your: Primary Care Provider Call Non-Emergent contact if: temperature is above 101, your pain is unusual for you . . "Provider Documentation" section prepared by Israel Callahan. . VTE Core Measure Inpt VTE Proph given/why not?: Freda Easton, SCD's
--- NOTE | 2017-03-20 12:09 | Hospitalist Progress Note ---
Hospitalist Progress Note Date of Service Mar 20, 2017. (Tori Fletcher CRNP) Subjective Pt evaluation today including: conversation w/ patient, chart review, lab review, review of inpatient medication list Pain: denies pain Voiding: no voiding problems Constitutional: No problem reported Respiratory: No problem reported Cardiovascular: No problem reported Abdomen: No problem reported Musculoskeletal: No problem reported Neurologic: No problem reported Psychiatric: No problem reported (Tori Fletcher CRNP) Objective Vital Signs Date Time Temp Pulse Resp B/P (MAP) Pulse Ox O2 Delivery O2 Flow Rate FiO2 03/20/17 08:00 99 Room Air 03/20/17 07:14 36.9 80 16 135/91 (106) 99 Room Air 03/20/17 00:00 Room Air 03/19/17 23:02 36.9 72 18 128/79 (95) 99 Room Air 03/19/17 20:18 82 135/83 (100) 03/19/17 20:00 Room Air 03/19/17 18:33 36.7 77 18 156/98 (117) 98 Room Air 03/19/17 18:15 37.3 67 18 96 03/19/17 16:12 Room Air 03/19/17 15:35 37.3 67 18 137/95 (109) 96 Room Air 03/19/17 12:28 Room Air (Tori Fletcher CRNP) Physical Exam General Appearance: WD/WN, no apparent distress Eyes: sclerae normal Respiratory/Chest: chest non-tender, lungs clear, normal breath sounds, no respiratory distress, no accessory muscle use Cardiovascular: regular rate, rhythm, no edema, no gallop, no murmur Abdomen: normal bowel sounds, non tender, soft Neurologic/Psychiatric: alert, normal mood/affect, oriented x 3 Skin: normal color, warm/dry (Tori Fletcher CRNP) Assessment and Plan (1) Hypertension Assessment & Plan: Secondary to mirtazapine overdose. Resolved, blood pressures in the 130s/80s since yesterday. Denies any other serotonin syndrome symptoms such as agitation, palpitations, diaphoresis or diarrhea. (2) Major depressive disorder, recurrent severe without psychotic features Denies current suicidal ideation, denies having felt suicidal at the time of the overdose. She felt it was an impulse to mitigate stress at school and immediately regretted taking the pills. She feels mostly back to her normal self. She plans to take a break from school after discharge from behavioral health to stay with family. She will discharge to [address] [place] [address] today. Discharge planning: other (behavioral health) (Tori Fletcher ., BARI) PA Physician Supervision Note: I interviewed and examined the patient. Discussed with Adela Fletcher HEAVY EQUIPMENT SERVICE MANAGER and agree with findings and plan as documented in the note. Any exceptions or clarifications are listed here: None Patient is seen independently and cleared for movement to mental health. Please see discharge summary Documented By: Israel Callahan (Israel Callahan M.D.) Problem Qualifiers (1) Hypertension: Hypertension type: other secondary hypertension Qualified Codes: I15.8 - Other secondary hypertension
[2017-03-20 14:43] VITALS: BP 135/91; PULSE 80; TEMP 36.9; O2SAT 99
--- NOTE | 2017-03-20 18:13 | Discharge Summary ---
Discharge Summary Date of Service Mar 20, 2017. Discharge Summary Admission Date: Mar 16, 2017 at 17:56 Discharge Date: Mar 20, 2017 Discharge Disposition: Acute care mental health Principal Diagnosis: suicide gesture, htn Problems/Secondary Diagnoses: (1) Major depressive disorder, recurrent severe without psychotic features Status: Chronic Medication Reconciliation New Medications: Bupropion HCl (Bupropion HCl Sr) 100 Mg Tabcr 100 MG PO [id number], #60 DOSE Metoprolol Tartrate (Lopressor) 25 Mg Tab 25 MG PO BID, #60 TAB 6 Refills Continued Medications: Etonogestrel (Nexplanon) 68 Mg Imp 68 MG IM DIRECTED Discontinued Medications: Montelukast Sodium (Singulair) 10 Mg Tab 10 MG PO DAILY, TAB Discharge Exam Review of Systems: Constitutional: No fever, No chills Respiratory: No cough, No sputum Physical Exam: General Appearance: WD/WN, no apparent distress Eyes: PERRL, EOMI ENT: hearing grossly normal, pharynx normal Neurologic/Psychiatric: alert, oriented x 3 Skin: normal color, warm/dry Hospital Course 26-year-old female status post suicide gesture with overdose of Remeron found to be hypertensive with history of the same plus a family history of the same The patient has recovered well from her Remeron overdose is clear mentation and accepted to mental health Her hypertension is better controlled with metoprolol however the patient is interested in attempting continued lifestyle modification. While she is here we 'll continue her metoprolol twice a day Okay to transfer to mental health unit for continued care Total Time Spent: Greater than 30 minutes This includes examination of the patient, discharge planning, medication reconciliation, and communication with other providers. Discharge Instructions Please refer to the electronic Patient Visit Report (Discharge Instructions) for additional information.
== END 2017-03-20 14:59 ==
LOC: EDBD 13:19 → C.EDA 13:20 → C.2T 17:56 → ENRESERV 19:23 → C.MS4W 03-19 18:29
PROVIDERS: ADMIT Hospitalist; ATTEND Family Medicine
DX: T43.022A Poisoning by tetracyclic antidepressants, intentional self-harm, initial encounter (principal); F33.2 Major depressive disorder, recurrent severe without psychotic features; E87.6 Hypokalemia; I10 Essential (primary) hypertension; F41.1 Generalized anxiety disorder; Z79.899 Other long term (current) drug therapy; X58.XXXA Exposure to other specified factors, initial encounter